=== PATIENT | male | born 1955 | race Caucasian/White ===

== ENCOUNTER 2022-02-18 05:50 | Inpatient (IN) | payer OTHER, SELFPAY ==
[2022-02-18] VITALS (27 sets, daily range): BP systolic 73–121; BP diastolic 51–80; PULSE 57–105; RESP 12–25; TEMP 36.1–36.6; O2SAT 89–100; BMI 24.5; BMI 22.1
--- NOTE | 2022-02-18 05:57 | RAD_ITS ---
EXAM: XR CHEST, 1 VIEW CLINICAL INDICATION: chest pain TECHNIQUE: Frontal view of the chest. This report was created using [employer] report generation technology. COMPARISON: 10/06/2014. FINDINGS: LUNGS AND PLEURAL SPACES: Unremarkable. No consolidation or edema. No pneumothorax. No effusion. HEART: Unremarkable. Cardiac silhouette not enlarged. MEDIASTINUM: Central airways and mediastinal contour are unremarkable. BONES/JOINTS: Unremarkable. SOFT TISSUES: Unremarkable. RAD/Chest 1 View (Portable) IMPRESSION: No radiographic evidence of acute cardiopulmonary disease. Electronically Signed: Hadley Tejada MD at 6:17 EDT ,
--- NOTE | 2022-02-18 05:57 | EKG12_ITS ---
Test Reason : CP Blood Pressure : / mmHG Vent. Rate : 060 BPM Atrial Rate : 060 BPM P-R Int : 166 ms QRS Dur : 096 ms QT Int : 422 ms P-R-T Axes : 080 081 058 degrees QTc Int : 422 ms Normal sinus rhythm ST elevation consider anterior injury or acute infarct ACUTE HI / STEMI Abnormal ECG Confirmed by CATINA MUNOZ, CLAUS ([id number]), slot editor ISMA RUBALCAVA ([id number]) on 02/19/2022 9:22:05 AM Referred By: Marleni Elizalde Confirmed By:ARY ELIZALDE MD
--- NOTE | 2022-02-18 06:03 | ED.VIS.CHEST ---
HPI History of Present Illness Chief Complaint: Chest Pain Informant: patient and EMS Onset/Context/Timing Onset: Today and Hours (1) Activity at onset: sudden Timing: Continuous Quality: Positive for Pressure Location: Left Chest Worsened By: Nothing Relieved By: Nothing Associated Symptoms: Positive for Diaphoresis and Lightheadedness; Negative for Nausea, Vomiting, Dyspnea, Cough, Fever, Acid Reflux or Palpitations Narrative Narrative: Patient presents with chest pain that began this morning. Patient states it began approximately 1 hour prior to arrival. Patient describes it as a pressure. Patient states it is over the left side of his chest. Patient states it radiates into his back. Patient states this feels similar to prior chest pain with his heart attacks. Patient states he has had 3 heart attacks and has had stents placed. Patient admits to some lightheadedness. Patient denies any shortness of breath. Patient admits to some nausea. Patient admits to some diaphoresis when the pain began. CVD Risk Factors: Positive for Hypertension and Smoking; Negative for Diabetes, Hypercholesterolemia or Family History 1' </=55 PE Risk Factors: Negative for Recent Travel/Surgery, Prior DVT or PE, Cancer or OCP + Smoking + >/=35 [facility] AT [facility] Medical History (Updated 02/18/22 @ 06:[address] Ras Rubi, ) Coronary artery disease Myocardial infarction Stroke Home Medications Triamcinolone 0.1% Cream 03/21/15 [History Last Taken 03/21/15] aspirin 325 mg tablet,delayed release 325 mg PO DAILY@0800 03/21/15 [History Last Taken 03/21/15 325] atorvastatin 80 mg tablet 80 03/21/15 [History Last Taken 03/21/15 80] lisinopril 5 mg tablet 5 03/21/15 [History Last Taken 03/21/15 5] metoprolol tartrate 25 mg tablet 25 03/21/15 [History Last Taken 03/21/15] nitroglycerin 0.4 mg sublingual tablet 03/21/15 [History Last Taken Unknown] Allergy/AdvReac Type Severity Reaction Status Date / Time Penicillins Allergy Hives Verified 02/18/22 06:06 Surgical History (Updated 02/18/22 @ 06:[address] Ras Rubi, DO) Hx of heart artery stent Social History Smoking Status: Current every day smoker tobacco type: cigarettes ROS ROS ED Constitutional Constitutional ED: Denies chills or fever(s) Eyes Eyes: Denies blurry vision or change in vision ENT ENT ED: Denies rhinorrhea or sore throat Cardiovascular Cardiovascular: Reports chest pain; Denies palpitations Respiratory/Chest Respiratory/Chest: Denies cough or dyspnea Gastrointestinal Gastrointestinal: Denies abdominal pain, nausea or vomiting Genitourinary Genitourinary ED: Denies dysuria or hematuria Musculoskeletal Musculoskeletal: Denies back pain or neck pain Integumentary Denies abscess or rash Neurologic Neurologic: Denies headache(s) or weakness Allergic/Immunologic Allergic/Immunologic ED: Denies mouth swelling or urticaria EXAM Physical Exam Const Vital Signs: 02/18/22 05:51 Temperature 97 F L Temperature Source Temporal Pulse Rate 62 Respiratory Rate 18 Blood Pressure 81/55 L Blood Pressure Mean 63 Pulse Ox 98 Oxygen Delivery Method Nasal Cannula Oxygen Flow Rate (L/min) 2 Positive well nourished and well developed General Appearance ED: well developed HEENT Reports moist mucous membranes Neck supple and no JVD Resp normal respiratory effort Auscultation: rales right Cardio regular rate and regular rhythm Peripheral Pulses: pulses 2+ throughout GI normal to inspection, nondistended, normoactive bowel sounds, soft to palpation and non-tender Extremity normal to inspection General Extremety ED: Negative for edema, pulses abnormal or tenderness General Extremity: Negative for edema or pulses abnormal Neuro oriented x3, CN's II-XII intact bilaterally and no sensory deficits noted Sensorium / Orientation: awake and alert Motor Exam: strength 5/5 throughout Psych mental status grossly normal Heart Score History: Highly Suspicious ECG: Significant ST-Depression Age: >/= 65 years Risk Factors: >/= 3 Risk Factors or History of CAD Score: 8 MDM MDM MDM Narrative Medical decision making narrative: EMS EKG shows sinus rhythm with ST elevation in leads II, III, aVF, V3, and V4. EKG upon arrival here was obtained. On my interpretation, it shows a normal sinus rhythm with a rate of 60. [place] interval, QRS interval, and QTc intervals are within normal limits. There is ST elevation in leads V1, V2, V3, and V4. The ST elevation in leads II, III, and aVF has resolved. EMS administered aspirin, heparin, and Brilinta. EMS reports that the patient took 2 sublingual nitroglycerin tablets prior to their arrival. Because of this, his blood pressure dropped to 81 systolic. Patient was getting IV fluids. Portable 1 view chest x-ray was obtained. On my interpretation, lung lombardi are clear. There is normal cardiac silhouette. Bony thorax is normal. There is no acute process noted. Radiologist also interpreted the x-ray and agrees. Case was discussed with Dr. Elizalde. He will take the patient to the Treatment Coordinator. Patient understands and is agreeable with the plan. All questions were answered. Radiography Chest X-Ray - ED: 1 View, Read by ED Physician, Read by Radiologist and No Acute Disease EKG Initial EKG: Attestation: I personally reviewed and interpreted this EKG as follows: Interpretation: Sinus Rhythm (60) and S-T Elevation (Leads V1 through V4) Prior EKG tracings: available for review Prior: Changed Treatment and Re-Evaluation Narrative: Patient was still having pain. Patient was initially ordered morphine for pain however, this was not given due to the patient's allergy and his low blood pressure. Patient will be transferred to the Treatment Coordinator. Critical Care Time Critical Care Time: Yes Critical care time (excluding procedures): 30-74 minutes (30), Including time spent:, Discussing w/Patient &/or Family/Vehicle Monitor Technician, Discussing w/Consultants, Arranging Admission or Transfer and Performing Direct Patient Care at Bedside Discharge Plan Triage Chief Complaint: Chest Pain ED Provider: Ras Rubi Dx/Rx/DC Orders Clinical Impression: Acute ST elevation myocardial infarction (STEMI), Coronary artery disease, Hypotension Primary Care Provider: Hospital,[place] Disposition Disposition: Acute Care Hospital [facility]
[2022-02-18 06:13] LABS: Absolute Lymphocyte Count 6.83 X10^3/uL (0.83-4.51); Absolute Neutrophil Count 5.9 X10^3/uL (2.0-7.7); Basophil# 0.05 X10^3/uL; Basophil% 0.3 % (0-1); Eosinophil# 0.28 X10^3/uL; Eosinophils% 1.9 % (0-5); Hematocrit 39.5 % (40-54); Hemoglobin 13.7 g/dL (13.0-16.5); Lymphocyte # 6.83 X10^3/ul (0.83-4.51); Lymphocyte % 47.4 % (19-41); Mean Corp Hgb Conc 34.7 g/dL (32-36); Mean Corpuscular Hgb 32.3 pg (27.0-32.0); Mean Corpuscular Volume 93.2 fL (80-94); Mean Platelet Vol. 9.4 fl (6.2-12.0); Monocyte# 1.28 X10^3/uL; Monocyte% 8.9 % (0-10); NRBC Flagged by Analyzer 0 % (0-5); Neutrophil % 41.1 % (47-70); POSITIVE DIFFERENTIAL YES; Platelet Count 230 K/mm3 (150-450); RBC Distribution Width CV 12.6 % (11.6-14.6); RBC Distribution Width SD 43.3 fl (35.1-43.9); Red Blood Count 4.24 M/mm3 (4.6-6.2); White Blood Count 14.4 K/mm3 (4.4-11.0)
--- NOTE | 2022-02-18 06:15 | PCM.HP.STD ---
HPI - General General Date of Admission: 02/18/22 Date of Service: 02/18/22 Chief Complaint: CHEST PAIN HPI Narrative EDWARD URBAN, is a 66 M with a significant history of CAD status post stents who presents to the emergency department with chest pain. Patient reports left-sided persistent chest pain that radiates to his upper back. The pain worsened about 1 hour prior to presentation. For couple of days he has had chest pain. The pain worsened while he was using his computer. He denies any aggravating factors to the chest pain. The chest pain improved with medication given prior to arrival to the ED. Reportedly patient was given aspirin; Brilinta; fentanyl and heparin by paramedics.. Patient report that for a couple of days he has also had shortness of breath. He denies nausea or vomiting. However with his chest pain he was incontinent of stool. He reports diaphoresis. At the emergency department his chest pain was beginning to increase in intensity. [facility] Medical History Coronary artery disease Myocardial infarction Stroke Home Medications Triamcinolone 0.1% Cream 03/21/15 [History Last Taken 03/21/15] aspirin 325 mg tablet,delayed release 325 mg PO DAILY@0800 03/21/15 [History Last Taken 03/21/15 325] atorvastatin 80 mg tablet 80 03/21/15 [History Last Taken 03/21/15 80] lisinopril 5 mg tablet 5 03/21/15 [History Last Taken 03/21/15 5] metoprolol tartrate 25 mg tablet 25 03/21/15 [History Last Taken 03/21/15] nitroglycerin 0.4 mg sublingual tablet 03/21/15 [History Last Taken Unknown] Allergy/AdvReac Type Severity Reaction Status Date / Time Penicillins Allergy Hives Verified 02/18/22 06:06 Family History Other Breast cancer Heart disease Surgical History Hx of heart artery stent Social History Smoking Status: Current every day smoker tobacco type: cigarettes ROS ROS Narrative Pertinent positives and pertinent negatives as noted in HPI. All other systems were reviewed and are negative Vital Signs Vital Signs Vital Signs: 02/18/22 05:51 02/18/22 05:51 02/18/22 06:04 Temperature 97 F L Temperature Source Temporal Pulse Rate 62 Respiratory Rate 18 18 Respiratory Effort Respiratory Pattern Blood Pressure 81/55 L 88/60 L Blood Pressure Mean 63 Pulse Ox 98 Oxygen Delivery Method Nasal Cannula Nasal Cannula Oxygen Flow Rate (L/min) 2 6 02/18/22 06:06 02/18/22 06:05 Temperature Temperature Source Pulse Rate 72 Respiratory Rate Respiratory Effort Normal Respiratory Pattern Normal Blood Pressure 73/51 L Blood Pressure Mean 58 Pulse Ox 100 Oxygen Delivery Method Nasal Cannula Oxygen Flow Rate (L/min) 6 Weight Weight: 71 kg Body Mass Index (BMI) 24.5 Physical Exam Narrative Physical exam: General: Patient in excruciating distress secondary to chest pain. Head: Normocephalic, atraumatic, no tenderness Eyes: Vision is grossly intact. EOMI ENT, no trauma, moist mucous membranes, no rhinorrhea Neck: Nontender, full range of motion. CVS: Regular rate and rhythm. S1-S2 present. No murmur, gallop or rub. Respiratory : clear to auscultation bilaterally, chest wall nontender, no wheezing Abdomen: Soft, nontender, nondistended, normal bowel sounds, no masses : Deferred Back: Nontender, no CVA tenderness. Extremities: Nontender full range of motion, no trauma Skin: Normal color, no trauma, abrasions Neuro: Alert, oriented, cranial nerves II through XII grossly intact. Psychiatry: Normal mood. Normal affect. Not depressed. Not anxious. Results Lab / Micro Data Result Diagrams: 02/18/22 05:55 02/18/22 05:55 Assessment & Plan Assessment/Plan (1) Acute ST elevation myocardial infarction (STEMI): (2) Hypotension: (3) Coronary artery disease: PLAN: Plan STEMI alert was called before patient arrived to the ED. EKG obtained by paramedics showed inferior lateral ST elevation with reciprocal ST depression. On arrival to the emergency department EKG showed ST elevation in V1 to V4 with reciprocal depressions. Taken to the Heater Operator Helper for PCI. Cardiology interventionalist consult. Checks x-ray was visualized and independent interpreted. No acute cardiopulmonary process was noted. I agree with radiologist interpretation. Given aspirin, Brilinta, fentanyl and heparin by paramedics. CBC and BMP ordered Admit to intensive care unit Hypotension Normal bolus ordered and given at the ED. Trend BP DVT prophylaxis: SCDs Charges/Coding Visit Charges Inpatient E&M: 95786 Init Hosp L3
[2022-02-18 06:31] LABS: Anion Gap 8 (5-15); BUN 15 mg/dL (7-18); BUN/Creat Ratio 16.1 RATIO (10-20); Calcium,Total 8.3 mg/dL (8.5-10.1); Chloride 106 mmol/L (98-107); Creatinine, Serum 0.93 mg/dL (0.70-1.30); EST Glomerular Filtration Rate 86 mL/min (>60); Est Glom Filt Rate - Afr Amer 104 mL/min (>60); Estimated Creatinine Clearance 73.05 ml/min; Glucose 160 mg/dL (74-106); International Normalized Ratio 1.2; Potassium 3.5 mmol/L (3.5-5.1); Prothrombin Time (Protime)PT. 15.1 SECONDS (11.7-14.9); Sodium Level 140 mmol/L (136-145); Troponin-I HS 54 pg/mL (3.0-78.0)
[2022-02-18 06:34] LABS: Partial Thromboplast Time 156.8 Seconds (24.1-36.2)
[2022-02-18 06:40] LABS: Differential Indicated SCAN CRITERIA MET
--- NOTE | 2022-02-18 07:58 | PCM.CONS.C ---
Assessment & Plan Assessment/Plan (1) Acute ST elevation myocardial infarction (STEMI): PLAN: Patient was treated with drug-eluting stents to the LAD and circumflex. He has a chronically occluded RCA that has collaterals from the circumflex. We will keep him on aspirin, Brilinta and statin. We will resume his beta-lui and MARE inhibitor as when he is off the Levophed if his blood pressure can tolerate. (2) Cardiogenic shock: PLAN: He received 1 dose of Lasix due to elevated EDP at the end of the procedure. He is on Levophed at this time. We will try to wean him off the Levophed as his blood pressure improves post revascularization. HPI Consult Data Date of Consult: 02/18/22 HPI Narrative Reason for Consultation: STEMI HPI Narrative: EDWARD URBAN, is a 66 M who presents with chest pain. Patient has history of coronary artery disease status post PCI in the past. He said his last stents were about 8 to 10 years ago. He follows with the [facility] in [place]. An EKG done on the way to the hospital was suggestive of STEMI. Patient was emergently brought to the [facility] and underwent coronary angiography which revealed 100% occlusion of the LAD that was treated with thrombectomy and drug-eluting stent placement. He also had a 99% stenosis in the proximal circumflex that was treated with drug-eluting stent placement. There were collaterals from the circumflex to the RCA. Patient did mention that he was told that one of his arteries was completely blocked and his body had made some collaterals. The RCA was occluded and appeared to be chronic. Patient has severe LV dysfunction as well. His blood pressure was in the 70s systolic for most of the procedure. He was started on Levophed. At the end of the procedure patient is stable, chest pain-free and has a blood pressure of 80s systolic on Levophed. Review of systems: All systems reviewed. All else is negative except in HPI [facility] Medical History Coronary artery disease Myocardial infarction Stroke Home Medications Triamcinolone 0.1% Cream 03/21/15 [History Last Taken 03/21/15] aspirin 325 mg tablet,delayed release 325 mg PO DAILY@0800 03/21/15 [History Last Taken 03/21/15 325] atorvastatin 80 mg tablet 80 03/21/15 [History Last Taken 03/21/15 80] lisinopril 5 mg tablet 5 03/21/15 [History Last Taken 03/21/15 5] metoprolol tartrate 25 mg tablet 25 03/21/15 [History Last Taken 03/21/15] nitroglycerin 0.4 mg sublingual tablet 03/21/15 [History Last Taken Unknown] Allergy/AdvReac Type Severity Reaction Status Date / Time Penicillins Allergy Hives Verified 02/18/22 06:06 Family History Other Breast cancer Heart disease Surgical History Hx of heart artery stent Social History Smoking Status: Current every day smoker tobacco type: cigarettes Physical Exam Const alert and oriented x3 HEENT normocephalic Eyes no scleral icterus Resp normal respiratory effort Cardio regular rate and regular rhythm Psych mental status grossly normal Risk Stratification Risk Stratification Applicable: No Charges/Coding Visit Charges Inpatient E&M: 51047 Init Hosp L2 Objective Data Vital Signs: Vital Signs Temp Pulse Resp BP Pulse Ox O2 Del Method O2 Flow Rate 97 F L 72 18 73/51 L 100 Nasal Cannula 6 02/18/22 06:18 02/18/22 06:18 02/18/22 06:18 02/18/22 06:18 02/18/22 06:18 02/18/22 06:18 02/18/22 06:18 Oxygen Flow Rate (L/min) 6 Oxygen Delivery Method Nasal Cannula Weight: 156 lb 8.451 oz Body Mass Index (BMI) 24.5 Lab / Micro Data Result Diagrams: 02/18/22 05:55 02/18/22 05:55 Labs: Laboratory Results - last 24 hr 02/18/22 05:55: WBC 14.4 H, RBC 4.24 L, Hgb 13.7, Hct 39.5 L, MCV 93.2, MCH 32.3 H, MCHC 34.7, RDW Std Deviation 43.3, RDW Coeff of Wisam 12.6, Plt Count 230, MPV 9.4, Immature Gran % (Auto) 0.400, Neut % (Auto) 41.1 L, Lymph % (Auto) 47.4 H, Bennett % (Auto) 8.9, Eos % (Auto) 1.9, Baso % (Auto) 0.3, Absolute Neuts (auto) 5.9, Absolute Lymphs (auto) 6.83 H, Nucleated RBC % 0 02/18/22 05:55: PT 15.1 H, INR 1.2, APTT 156.8 H* 02/18/22 05:55: Sodium 140, Potassium 3.5, Chloride 106, Carbon Dioxide 26.0, Anion Gap 8, BUN 15, Creatinine 0.93, Estim Creat Clear Calc 73.05, Est GFR (MDRD) Af Amer 104, Est GFR (MDRD) Non-Af 86, BUN/Creatinine Ratio 16.1, Glucose 160 H, Calcium 8.3 L, Troponin I High Sens 54 Cardiology Labs/Tests 02/18/22 05:55: WBC 14.4 H, RBC 4.24 L, Hgb 13.7, Hct 39.5 L, MCV 93.2, MCH 32.3 H, MCHC 34.7, Plt Count 230, MPV 9.4, Immature Gran % (Auto) 0.400, Neut % (Auto) 41.1 L, Lymph % (Auto) 47.4 H, Bennett % (Auto) 8.9, Eos % (Auto) 1.9, Baso % (Auto) 0.3, Absolute Neuts (auto) 5.9, Nucleated RBC % 0 02/18/22 05:55: PT 15.1 H, INR 1.2, APTT 156.8 H* 02/18/22 05:55: Sodium 140, Potassium 3.5, Chloride 106, Carbon Dioxide 26.0, Anion Gap 8, BUN 15, Creatinine 0.93, Est GFR (MDRD) Af Amer 104, Est GFR (MDRD) Non-Af 86, BUN/Creatinine Ratio 16.1, Glucose 160 H, Calcium 8.3 L Rhythm: EKG: ECHO: Stress Test: Cardiac Cath: PCI: CT Surgery: Holter monitor: EPS: PPM: CXR: Chest CT Scan: Radiography Diagnostic Testing: Radiology Impression Chest X-Ray 02/18/22 05:57 IMPRESSION: No radiographic evidence of acute cardiopulmonary disease. Electronically Signed: Hadley Tejada MD at 6:17 EDT ,
[2022-02-18] MEDS: 0.9% Normal Saline 1,000 ML 30 ML IV (08:27)
[2022-02-18] MEDS: TICAGRELOR 90 MG TABLET PO ×2 (09:19→20:10)
--- NOTE | 2022-02-18 10:00 | EKG12_ITS ---
Test Reason : ROUTINE Blood Pressure : / mmHG Vent. Rate : 089 BPM Atrial Rate : 089 BPM P-R Int : 158 ms QRS Dur : 098 ms QT Int : 360 ms P-R-T Axes : 086 091 058 degrees QTc Int : 438 ms Normal sinus rhythm Normal ECG When compared with ECG of 18-FEB-2022 08:15, MANUAL COMPARISON REQUIRED, DATA IS UNCONFIRMED Confirmed by SYDNEE MUNOZ, BUZZ ([id number]), editorial specialist ISMA RUBALCAVA ([id number]) on 02/20/2022 11:22:10 AM Referred By: Marleni Elizalde Confirmed By:BUZZ RANDHAWA MD
[2022-02-18] MEDS: Atorvastatin Calcium 80 MG Tablet PO (20:10)
[2022-02-19] VITALS (23 sets, daily range): BP systolic 93–130; BP diastolic 54–83; PULSE 78–130; RESP 14–20; TEMP 36.6–37.6; O2SAT 89–99
[2022-02-19 04:09] LABS: Hematocrit 37.9 % (40-54); Mean Corp Hgb Conc 34.3 g/dL (32-36); Mean Corpuscular Volume 93.3 fL (80-94); Mean Platelet Vol. 9.5 fl (6.2-12.0); Platelet Count 162 K/mm3 (150-450); RBC Distribution Width CV 12.8 % (11.6-14.6); RBC Distribution Width SD 44.1 fl (35.1-43.9); Red Blood Count 4.06 M/mm3 (4.6-6.2)
[2022-02-19 04:27] LABS: ALB/GLOB Ratio 0.7 RATIO (0.9-2.4); AST(SGOT) 339 U/L (15-37); Alanine Aminotransfer ALT/SGPT 80 U/L (16-61); Albumin, Serum 2.6 g/dL (3.2-5.0); Alkaline Phosphatase 99 U/L (45-117); Anion Gap 7 (5-15); BUN 9 mg/dL (7-18); BUN/Creat Ratio 11.7 RATIO (10-20); Calcium,Total 7.8 mg/dL (8.5-10.1); Chloride 107 mmol/L (98-107); Creatinine, Serum 0.77 mg/dL (0.70-1.30); EST Glomerular Filtration Rate 107 mL/min (>60); Est Glom Filt Rate - Afr Amer 130 mL/min (>60); Estimated Creatinine Clearance 67.83 ml/min; Globulin 3.7 g/dL (2.2-4.2); Glucose 123 mg/dL (74-106); Protein, Total 6.3 g/dL (6.4-8.2); Sodium Level 139 mmol/L (136-145)
--- NOTE | 2022-02-19 08:02 | PN.HOSP_ITS ---
Subjective Subjective Doing well, no issues overnight. Off of Levophed. Denies any chest pain or shortness of breath Objective Data Objective Data Vital Signs: Vital Signs Temp Pulse Resp BP Pulse Ox O2 Del Method O2 Flow Rate 99.6 F H 83 19 H 100/59 L 92 Nasal Cannula 2 02/19/22 00:00 02/19/22 07:00 02/19/22 07:00 02/19/22 07:00 02/19/22 07:00 02/19/22 07:00 02/19/22 07:00 Oxygen Flow Rate (L/min) 2 Oxygen Delivery Method Nasal Cannula Weight: 145 lb 8.081 oz Body Mass Index (BMI) 22.1 Intake & Output: Intake and Output for Last 24 Hours 02/18/22 02/19/22 02/20/22 03:59 03:59 03:59 Intake Total 1979 / 1979 Output Total 2049 / 2599 550 / 550 Balance -70 / -620 -550 / -550 Lab / Micro Data Result Diagrams: 02/19/22 04:00 02/19/22 04:00 Labs: Laboratory Results - last 24 hr 02/19/22 04:00: WBC 14.0 H, RBC 4.06 L, Hgb 13.0, Hct 37.9 L, MCV 93.3, MCH 32.0, MCHC 34.3, RDW Std Deviation 44.1 H, RDW Coeff of Wisam 12.8, Plt Count 162, MPV 9.5 02/19/22 04:00: Sodium 139, Potassium 4.0, Chloride 107, Carbon Dioxide 25.0, Anion Gap 7, BUN 9, Creatinine 0.77, Estim Creat Clear Calc 67.83, Est GFR (MDRD) Af Amer 130, Est GFR (MDRD) Non-Af 107, BUN/Creatinine Ratio 11.7, Glucos e 123 H, Calcium 7.8 L, Total Bilirubin 0.70, AST 339 H, ALT 80 H, Alkaline Phosphatase 99, Total Protein 6.3 L, Albumin 2.6 L, Globulin 3.7, Albumin/Globulin Ratio 0.7 L Physical Exam Narrative General: Alert, Oriented x3, Cooperative, No apparent distress HEENT: Atraumatic, PERRLA, EOMI, Normocephalic Oral: Moist Mucosa Neck: Supple, No JVD Lungs: Clear to auscultation, Normal air movement, No rhonchi, No wheeze, No rales Cardiovascular: Regular rate, Regular Rhythm, Normal S1, Normal S2, No murmurs Abdomen: Soft, Non Tender, Non-Distended, No Hepato-splenomegaly Extremities: No edema, Capillary Refill Less than 3 Seconds Skin: No rashes, No breakdown Musculoskeletal: No Tenderness to Palpation of Joints or Extremities Neurological: Cranial nerves II-XII grossly intact, Motor Exam 5/5 strength throughout, Sensory exam intact to light touch and pain Psych/Mental Status: Normal Affect, Appropriate Assessment & Plan Assessment/Plan (1) Acute ST elevation myocardial infarction (STEMI): (2) Hypotension: (3) Coronary artery disease: PLAN: Plan 1. STEMI status post JUANCARLOS/HTN/HLD/CAD/tobacco abuse ? Continue with aspirin and Brilinta ? Blood pressures are borderline so is not cannot tolerate any blood pressure medications at this time ? Continue with Lipitor ? Discussed smoking cessation ? Appreciate cardiology's assistance DVT: SCDs Charges/Coding Visit Charges Inpatient E&M: 03570 Subs Hosp L2
--- NOTE | 2022-02-19 08:35 | CRPHASE1 ---
Patient Communication Former Patient:: Phase I PHII Cardiac Rehab Discussed with Patient:: Yes Guide to Cardiac Rehab Given to Patient:: Yes Cardiac Rehab Facility Choice List Given to Patient:: Yes Choice Program [facility] CR PHII:: Communication Given to CR Choice Program Other:: Communication Given to CR Belt Puncher:: Marleni Elizalde Refer Phase II Cardiac Rehab:: Yes Sessions:: 36 sessions - 3 days/wk, 12 weeks Cardiac Rehabilitation Info Cardiac Rehabilitation Program Information: Cardiac Rehabilitation is important for patients like you who are recovering from a heart problem. Cardiac rehabilitation programs are recognized as integral to the continued care of the patient with coronary heart disease. The cardiac rehabilitation program is designed to optimize a patient's physical, psychological, and social functioning. Health patient centered care specialist work in cardiac rehabilitation programs and assist you with getting the treatments you need to get stronger and healthier - like exercise, healthy eating habits, and medications. Cardiac rehabilitation has been show to help people with heart problems live longer and have better life enjoyment than people who do not go to cardiac rehabilitation. Please contact the Cardiac Rehabilitation Program at [facility] at in two weeks if you have not heard from them.
--- NOTE | 2022-02-19 08:36 | CRPH1.INSTRU ---
General Education CAD and cardiac anatomy and function:: Patient communicates acknowledgment Explanation of diagnoses and procedures:: Patient communicates acknowledgment Sign/Symptoms of [place]:: Patient communicates acknowledgment Antiplatelet therapy: Patient communicates acknowledgment Smoking Patient Nicotine/Smoking Risk Factors Are:: Cigarettes Recommendations Include:: Smoking cessation strategies/Smoking packet, Participation in a smoking cessation program, Previous smoker; encourage continued cessation Nicotine/Smoking Response Code:: Patient communicates acknowledgment Dyslipidemia Patient Dyslipidemia Risk Factors Are:: Total Cholesterol, Triglycerides, HDL, LDL Recommendations Include:: Lipid profile provided, Reviewed NCEP/ATP guidelines, Therapeutic Lifestyle Change dietary guidelines Dyslipidemia Response Code:: Patient communicates acknowledgment Overweight/Obesity Patient Overweight/Obesity Risk Factors Are:: BMI Normal [18-25 & < 65 years old] Hypertension Recommendations Include:: Maintain BP <130/85, DASH dietary guidelines, Decrease/maintain normal body weight, Moderation of ETOH Hypertension:: Patient communicates acknowledgment Diabetes Patient Diabetes Risk Factors Are:: No documented hx of diabetes Sedentary Patient Sedentary Risk Factors Are:: Lack of regular exercise Recommendations Include:: Aerobic exercise 5-7 times/week for 20-30 minutes continuously, Benefits of regular exercise, Discussed home walking program, Monitored Outpatient Cardiac Rehab Sedentary Response Code:: Patient communicates acknowledgment Stress Recommendations Include:: Identification of stressors, and assessment of coping skills, Stress management techniques Stress Response Code:: Patient communicates acknowledgment
--- NOTE | 2022-02-19 10:00 | EKG12_ITS ---
Test Reason : AM EKG Blood Pressure : / mmHG Vent. Rate : 081 BPM Atrial Rate : 081 BPM P-R Int : 156 ms QRS Dur : 092 ms QT Int : 346 ms P-R-T Axes : 074 078 048 degrees QTc Int : 401 ms Normal sinus rhythm Anterior infarct , age undetermined Abnormal ECG When compared with ECG of 19-FEB-2022 07:41, MANUAL COMPARISON REQUIRED, DATA IS UNCONFIRMED Confirmed by SYDNEE MUNOZ, BUZZ ([id number]), map editor ISMA RUBALCAVA ([id number]) on 02/21/2022 9:38:26 AM Referred By: Marelni Elizalde Confirmed By:BUZZ RANDHAWA MD
--- NOTE | 2022-02-19 11:00 | CASEMGMT ---
RN ERIC Face to Face with patient for initial transition planning/care coordination assessment. RN CM introduced self and role at [facility]. Patient lying in bed, alert and oriented. Patient willing to participate in assessment and is able to answer all questions appropriately. Care providers, pharmacy, and demographics verified. Patient wishes to discharge home, denies need for home health at this time. Patient states he has no further needs or concerns at this time. CM to follow for discharge planning needs that may arise. PCP: [place] Special[place]: [place] Preferred Pharmacy: [facility] or via mail through [place] through [place] Living Will/HPOA: None LNOK: Ying Valenzuela Living Arrangements: Patient lives with GF in a 2 story home with bed and bath on first floor, 5 steps and railing to enter the home. Patient states he is independent at home. Transportation: self, GF DME/HHC: Patient denies DME in the home. No previous HHC or SNF. Will monitor for anticoagulation savings card at discharge. Disposition Plan: Patient to discharge home with family support and follow-up plans in place. Catie DUNCAN, RN, CM
[2022-02-19] MEDS: Aspirin E.C. 81 MG Tablet PO (12:52)
[2022-02-19] MEDS: TICAGRELOR 90 MG TABLET PO ×2 (13:32→22:42)
--- NOTE | 2022-02-19 14:05 | CL.I_ITS ---
Patient Name: EDWARD URBAN Study Date: 02/18/2022 Performing: Leeroy Elizalde MD Ht: 67 inches 170.18 cm : 1955 Wt: 156.7 lbs 71 kg Age: 66 Gender: male BSA: 1.82 PROCEDURE(S) PERFORMED DC01-(47916)LHC/COR/LV IC16-(87323/[id number])AMI, JUANCRALOS OR PTCA, ARTERY/GRAFT, SINGLE VESSEL IC12-(15581/C9600)JUANCARLOS W/WO PTCA, SINGLE CORONARY ARTERY CLINICAL PROFILE AND CO-MORBIDITIES Indications: ACS <= 24 hrs Heart Failure: None Stress/Imaging Stress/Image Study Performed: No CAD Presentations: STEMI. Symptom onset Date/Time: 02/18/22 Time Not Available CONCLUSIONS Severe multivessel CAD as described. EF is 35%. No significant . Successful PCI of pLAD with JUANCARLOS. Successful PCI of pLCx [facility] JUANCARLOS RECOMMENDATIONS DESCRIPTION OF PROCEDURE The patient arrived to the procedure lab. The risks and benefits of the procedure as well as a full description of our services here and lack of surgical backup were fully explained to the patient and/or their significant other prior to the catheterization. The Timeout was completed, verifying the correct patient and procedure. The patient's procedural site was prepped and draped in the usual fashion. Local anesthetic was given subcutaneously to right radial region with Lidocaine 2%. Using a modified Seldinger technique, arterial access was obtained via the right radial artery, a 6Fr sheath was inserted.. Left Coronary Artery selective angiography was performed in multiple views using a 5 Fr. JL3.5 catheter. Left Ventriculography was performed in QUIROGA projection using a 5 Fr. JR4. Right Coronary Artery selective angiography was then performed in multiple views using a 5 Fr. JR 4 catheter XB 3.0 Guide catheter was inserted and engaged into the LCA Priority One inserted Pass # 1 Priority One Removed Angiogram performed post Priority one Angiogram performed post Priority one Emerge 2.50x20 Balloon catheter was inserted. PTCA balloon inflated at 6 atms for 8 secs. PTCA balloon inflated at 6 atms for 7 secs. PTCA balloon inflated at 6 atms for 7 secs. PTCA balloon inflated at 6 atms for 5 secs. PTCA balloon inflated at 6 atms for 10 secs. PTCA balloon inflated at 6 atms for 5 secs. Angiogram performed post balloon dilatation. Orsiro 2.5x40 Drug Eluting stent was inserted. Angiogram performed post stent deployment. Orsiro 2.75x26 Drug Eluting stent was inserted. Angiogram performed post stent deployment. NC Emerge 2.75x20 Balloon catheter was inserted. BMW Guide wire was repositioned to the Circumflex PTCA balloon inflated at 12 atms for 6 secs. PTCA balloon inflated at 12 atms for 25 secs. PTCA balloon inflated at 12 atms for 5 secs. Angiogram performed post balloon dilatation. Orsiro 2.75x40 Drug Eluting stent was inserted. Angiogram performed post stent deployment. NC Emerge 3.00x20 Balloon catheter was inserted. Runthrough Guide wire was inserted as a jan wire NC Emerge 3.00x 20- on Runthrough wire Balloon catheter was inserted. NC Emerge 3.00x20- on BMW wire Balloon catheter was inserted. The arterial sheath was pulled and a TR Band was applied for hemostasis w/12ml air CORONARY ANGIOGRAPHY DOMINANCE: Right Dominant LEFT HEART ASSESSMENT Left Ventricular Ejection Fraction: by LV Gram 35 % The base of the LV is alexis well. Rest of the LV is moderate to severely hypokinetic LEFT MAIN: Mild luminal irregularities LEFT ANTERIOR DESCENDING ARTERY: PROX LAD: 100 % Stenosis DIAGONAL 1: Proximal - 80 % Stenosis. Small vessel CIRCUMFLEX ARTERY: PROX CIRC: 95 % Stenosis RIGHT CORONARY ARTERY: PROX RCA: 100 % Stenosis. Collaterals noted from LCx to RCA VALVE FINDINGS: No Aortic Valve Stenosis INTERVENTION INFORMATION LESION SITE: LAD (Proximal) Lesion Complexity: High/C, chronic total occlusion: No, lesion at bifurcation: No, thrombus present: Yes, lesion length: 60 mm, culprit lesion: Yes, Previously treated lesion: Yes, Timeframe of previous treatment: >2 years, Previously treated with a stent: Yes Stent Type: with stent type unknown, In-stent restenosis: Yes Pre Stenosis: 100 % Pre intervention AGNES flow: 0 PROCEDURE: Thrombectomy, Drug Eluting Stent with pre and post dilatation Post Stenosis: 0 % Post intervention AGNES flow: 3 Lesion Devices: Cardinal 6 Fr XB3.0 100cm Guide Catheter Simmons .014 BMW [employer] Straight 190cm Tero Priority One Aspiration Catheter Toby Sci EMERGE MR 2.50x20 BALLOON Biotronik Orsiro [place] MR JUANCARLOS 2.75x26 Toby Sci NC EMERGE MR 2.75x20 BALLOON Biotronik Orsiro [place] MR JUANCARLOS 2.5x40 LESION SITE: Circumflex (Proximal) Lesion Complexity: High/C, chronic total occlusion: No, lesion at bifurcation: No, thrombus present: No, lesion length: 35 mm, culprit lesion: Yes, Previously treated lesion: No Pre Stenosis: 95 % Pre intervention AGNES flow: 3 PROCEDURE: Drug Eluting Stent with pre dilatation. Post Stenosis: 0 % Post intervention AGNES flow: 3 Lesion Devices: Cardinal 6 Fr XB3.0 100cm Guide Catheter Simmons .014 BMW Hannaford Straight 190cm Toby Sci NC EMERGE MR 2.75x20 BALLOON Biotronik Orsiro [place] MR JUANCARLOS 2.75x40 Toby Sci NC EMERGE MR 3.00x20 BALLOON Terumo .014 Runthrough Extra Floppy 180cm straight COMPLICATIONS No Complications PROCEDURE MEDICATIONS Fentanyl 25 mcg IV Oxygen: 2 L/min via nasal cannula Oxygen: 4 L/min via nasal cannula Heparin given IA 02/18/2022 06:34:54 Heparin 1000 unit(s) IV 02/18/2022 07:22:58 Lasix 20 mg IV 02/18/2022 07:43:43 IV Bolus: .9 NaCl 2L total 02/18/2022 06:28:04 SUMMARY OF HEMODYNAMIC DATA Time AIR REST ECG 06:20:14 ECG 06:22:40 AO 59/40 (48) SA 06:36:39 LV 73/10, 28 06:42:07 LV 79/18, 30 06:42:14 LVp 73/44, 45 06:42:16 AOp 74/46 (59) 06:42:22 AO 72/46 (57) 06:48:45 AO 62/41 (50) 07:04:59 AO 58/38 (48) 07:11:08 ECG 07:40:47 Signed By Leeroy Elizalde MD On 02/19/2022 14:04:14 Leeroy Elizalde MD
--- NOTE | 2022-02-19 14:28 | PN.CARD_ITS ---
Subjective Subjective doing well. denies any cardiac complaints Objective Data Vital Signs: Vital Signs Temp Pulse Resp BP Pulse Ox O2 Del Method O2 Flow Rate 97.9 F 130 H 20 H 130/83 H 94 Room Air 2 02/19/22 12:00 02/19/22 13:00 02/19/22 13:00 02/19/22 13:00 02/19/22 13:00 02/19/22 13:00 02/19/22 07:00 Oxygen Flow Rate (L/min) 2 Oxygen Delivery Method Room Air Weight: 145 lb 8.081 oz Body Mass Index (BMI) 22.1 Intake & Output: Intake and Output for Last 24 Hours 02/17/22 02/18/22 02/19/22 23:59 23:59 23:59 Intake Total 1979 Output Total 1674 925 / 925 Balance 305 / -70 -925 / -925 Lab / Micro Data Result Diagrams: 02/19/22 04:00 02/19/22 04:00 Labs: Laboratory Results - last 24 hr 02/19/22 04:00: WBC 14.0 H, RBC 4.06 L, Hgb 13.0, Hct 37.9 L, MCV 93.3, MCH 32.0, MCHC 34.3, RDW Std Deviation 44.1 H, RDW Coeff of Wisam 12.8, Plt Count 162, MPV 9.5 02/19/22 04:00: Sodium 139, Potassium 4.0, Chloride 107, Carbon Dioxide 25.0, Anion Gap 7, BUN 9, Creatinine 0.77, Estim Creat Clear Calc 67.83, Est GFR (MDRD) Af Amer 130, Est GFR (MDRD) Non-Af 107, BUN/Creatinine Ratio 11.7, Glucos e 123 H, Calcium 7.8 L, Total Bilirubin 0.70, AST 339 H, ALT 80 H, Alkaline Phosphatase 99, Total Protein 6.3 L, Albumin 2.6 L, Globulin 3.7, Albumin/Globulin Ratio 0.7 L Cardiology Labs/Tests 02/19/22 04:00: WBC 14.0 H, RBC 4.06 L, Hgb 13.0, Hct 37.9 L, MCV 93.3, MCH 32.0, MCHC 34.3, Plt Count 162, MPV 9.5 02/19/22 04:00: Sodium 139, Potassium 4.0, Chloride 107, Carbon Dioxide 25.0, Anion Gap 7, BUN 9, Creatinine 0.77, Est GFR (MDRD) Af Amer 130, Est GFR (MDRD) Non-Af 107, BUN/Creatinine Ratio 11.7, Glucose 123 H, Calcium 7.8 L, Total Bilirubin 0.70 Rhythm: EKG: ECHO: Stress Test: Cardiac Cath: PCI: CT Surgery: Holter monitor: EPS: PPM: CXR: Chest CT Scan: Physical Exam Const alert and oriented x3 HEENT normocephalic Resp normal respiratory effort Cardio regular rate Skin no rashes or lesions noted Psych mental status grossly normal Assessment & Plan Assessment/Plan (1) Acute ST elevation myocardial infarction (STEMI): PLAN: Patient was treated with drug-eluting stents to the LAD and circumflex. He has a chronically occluded RCA that has collaterals from the circumflex. We will keep him on aspirin, Brilinta and statin. Will restart BB. Due to BP being on the low side, will add MARE-I tomorrow if he is able to tolerate the BB. (2) Cardiogenic shock: PLAN: Improved. Off levo. Adding BB today, Charges/Coding Visit Charges Inpatient E&M: 96655 Subs Hosp L2
[2022-02-19] MEDS: Metoprolol(XL)Succ 25 MG Tablet PO (15:43)
[2022-02-19] MEDS: Atorvastatin Calcium 80 MG Tablet PO (22:42)
[2022-02-19] MEDS: 0.9% Saline Lock 10 ML Syringe IV (22:48)
[2022-02-20] VITALS (9 sets, daily range): BP systolic 87–102; BP diastolic 57–65; PULSE 75–93; RESP 16–18; TEMP 36.9–37.3; O2SAT 92–96
[2022-02-20 06:10] LABS: Absolute Lymphocyte Count 2.04 X10^3/uL (0.83-4.51); Absolute Neutrophil Count 8.4 X10^3/uL (2.0-7.7); Basophil# 0.03 X10^3/uL; Basophil% 0.3 % (0-1); Eosinophil# 0.07 X10^3/uL; Eosinophils% 0.6 % (0-5); Hematocrit 40.1 % (40-54); Hemoglobin 13.9 g/dL (13.0-16.5); Lymphocyte # 2.04 X10^3/ul (0.83-4.51); Lymphocyte % 17.3 % (19-41); Mean Corp Hgb Conc 34.7 g/dL (32-36); Mean Corpuscular Volume 92.4 fL (80-94); Mean Platelet Vol. 9.5 fl (6.2-12.0); Monocyte# 1.26 X10^3/uL; Monocyte% 10.7 % (0-10); NRBC Flagged by Analyzer 0 % (0-5); Neutrophil # 8.38 X10^3/uL (2.7-7.7); Neutrophil % 70.8 % (47-70); Platelet Count 174 K/mm3 (150-450); RBC Distribution Width CV 12.5 % (11.6-14.6); RBC Distribution Width SD 42.8 fl (35.1-43.9); Red Blood Count 4.34 M/mm3 (4.6-6.2); White Blood Count 11.8 K/mm3 (4.4-11.0)
[2022-02-20 06:51] LABS: ALB/GLOB Ratio 0.6 RATIO (0.9-2.4); AST(SGOT) 167 U/L (15-37); Alanine Aminotransfer ALT/SGPT 57 U/L (16-61); Albumin, Serum 2.6 g/dL (3.2-5.0); Alkaline Phosphatase 99 U/L (45-117); Anion Gap 6 (5-15); BUN 11 mg/dL (7-18); BUN/Creat Ratio 14.6 RATIO (10-20); Calcium,Total 8.4 mg/dL (8.5-10.1); Chloride 109 mmol/L (98-107); Creatinine, Serum 0.75 mg/dL (0.70-1.30); EST Glomerular Filtration Rate 110 mL/min (>60); Est Glom Filt Rate - Afr Amer 133 mL/min (>60); Estimated Creatinine Clearance 64.96 ml/min; Globulin 4.1 g/dL (2.2-4.2); Glucose 109 mg/dL (74-106); Potassium 3.8 mmol/L (3.5-5.1); Protein, Total 6.7 g/dL (6.4-8.2); Sodium Level 139 mmol/L (136-145)
--- NOTE | 2022-02-20 10:00 | EKG12_ITS ---
Test Reason : POST STEMI Blood Pressure : / mmHG Vent. Rate : 086 BPM Atrial Rate : 086 BPM P-R Int : 162 ms QRS Dur : 098 ms QT Int : 380 ms P-R-T Axes : 073 083 008 degrees QTc Int : 454 ms Normal sinus rhythm ST & T wave abnormality, consider inferior ischemia Abnormal ECG When compared with ECG of 18-FEB-2022 05:52, MANUAL COMPARISON REQUIRED, DATA IS UNCONFIRMED Confirmed by SYDNEE MUNOZ, BUZZ ([id number]), scientific editor ISMA RUBALCAVA ([id number]) on 02/20/2022 11:22:47 AM Referred By: Marleni Elizalde Confirmed By:BUZZ RANDHAWA MD
--- NOTE | 2022-02-20 10:18 | PCM.DC ---
Discharge Instructions Diet Discharge Diet: Low fat / Low cholesterol Activity Discharge Activity: Return to Normal Activity Dressing / Incision Call your doctor if you observe: Fever of 101 or Higher, Shortness of breath, Dizziness, Fainting spells, Swelling in the ankles, Chest pain and Increased palpitations (irregular heartbeat) Follow Up Care Test Results: Test results from this visit will be discussed in further detail at your follow-up appointment, if applicable. Discharge Plan Admission Admit Date/Time: 02/18/22 06:08 Attending Provider: Angel Walker Primary Care Provider: [facility],[place] Consulting Providers: Shad Monzon ; Marleni Elizalde Discharge Orders/Prescriptions Prescriptions: New atorvastatin 80 mg Tablet 80 mg PO QHS Qty: 30 0RF aspirin 81 mg Tablet,Delayed Release (Dr/Ec) 81 mg PO DAILY@0800 Qty: 30 0RF metoprolol succinate 25 mg Tablet Extended Release 24 Hr 25 mg PO DAILY Qty: 30 0RF Brilinta 90 mg Tablet 90 mg PO BID Qty: 60 0RF Discontinued atorvastatin 80 MG tablet 80 mg aspirin 325 MG tablet 325 mg PO DAILY@0800 nitroglycerin 0.4 MG tablet 1 mg lisinopril 5 MG tablet 5 mg metoprolol tartrate 25 MG tablet 25 mg Aspir-81 81 mg Referrals / Follow Up: [facility],[place] [Primary Care Provider] - Within 1 Week Marleni Elizalde MD [Med Staff - Active Staff] - Within 1 Month Disposition Disposition (needs filled in before D/C Order can be placed): Home, Self Care
[2022-02-20] MEDS: Metoprolol(XL)Succ 25 MG Tablet PO (10:21)
[2022-02-20] MEDS: TICAGRELOR 90 MG TABLET PO (10:21)
[2022-02-20] MEDS: Aspirin E.C. 81 MG Tablet PO (10:21)
--- NOTE | 2022-02-20 10:39 | CASEMGMT ---
Addendum entered by Catie Montelongo 02/20/22 11:09: MOSES REYES received a message to call Brittanie at [facility] in regards to pt. Call to Brittanie at ext [phone] and she is updated on pt discharge today, voices understanding. Nikita LOPES CM Addendum entered by Catie Montleongo 02/20/22 10:57: Call from Nigel in pharmacy and she states pt's cost for atorvastatin and metoprolol is $26.84. This RN CM to room to update pt and he states he already has atorvastatin and metoprolol at home. This RN CM clarified doses and atorvastatin is the same dose and metoprolol is same dose but is the extended release tab now. Call back to pharmacy and updated that pt will just need the Brilinta, metoprolol and baby asa, voices understanding and pt aware of new cost, $13.59. Pt voices no further questions/concerns/needs. Nikita LOPES CM Addendum entered by Catie Montelongo 02/20/22 10:43: Pt only has [place], so no rx insurance. Call back to pharmacy to update and they will apply coupon card for Brilinta and then will call this RN CM back with cost for metoprolol and atorvastatin. Nikita LOPES CM Original Note: Pt to be sent home on Brilinta and med e-scribed to [facility] pharmacy. Call to Sheela in pharmacy and she will notify this RN ERIC of pt co-pay and then apply one month free trial card. CM to follow. Nikita LOPES CM
--- NOTE | 2022-02-20 14:00 | PHA.DC.MC ---
Pharmacy Service has performed discharge medication reconciliation and counseling for this patient. 1. METOPROLOL SUCCINATE 25MG PO DAILY 2. TICAGRELOR 90MG PO BID The patient's discharge medication list was reviewed for discrepancies and discrepancies were resolved. Home Medications aspirin 81 mg tablet,delayed release 81 mg PO DAILY@0800 #30 tabs 02/20/22 atorvastatin 80 mg tablet 80 mg PO QHS #30 tabs 02/20/22 metoprolol succinate 25 mg tablet,extended release 24 hr 25 mg PO DAILY #30 tabs 02/20/22 ticagrelor 90 mg tablet (Brilinta) 90 mg PO BID #60 tabs 02/20/22 The patient was counseled on the following discharge medications and changes in medications for homegoing were reviewed. The Reason for Use, instructions for use, and potential side effects were reviewed for all new medications. The patient's questions regarding all of their medications were answered. The patient was able to verbally demonstrate an understanding of their discharge medications. Patient counseled by pharmacy teacherGregoria.
--- NOTE | 2022-02-20 14:26 | DS.PCM_ITS ---
Providers Date of Admission: 02/18/22 Primary Care Physician: [facility] Consultations 02/18/22 08:03 Consult: Cardiology Routine Consulting Provider: Marleni Elizalde Reason for Consult: STEMI EMERGENT Consult: No MD Notified: Yes Date Notified: 02/18/22 Time Notified: 06:13 Method of Notification: ED Physician Initiated Method of Consult:: In-Person Reason For Visit: stemi Diagnosis Discharge Diagnosis (1) Acute ST elevation myocardial infarction (STEMI): Status: Acute Code(s): I21.3 - ST elevation (STEMI) myocardial infarction of unspecified site (2) Cardiogenic shock: Status: Acute Code(s): R57.0 - Cardiogenic shock Plan 1. STEMI status post UJANCARLOS/HTN/HLD/CAD/tobacco abuse ? Continue with aspirin and Brilinta ? Blood pressures are borderline so is not cannot tolerate any blood pressure medications at this time ? Continue with Lipitor ? Discussed smoking cessation ? Appreciate cardiology's assistance DVT: SCDs Medications at Discharge Home Medications aspirin 81 mg tablet,delayed release 81 mg PO DAILY@0800 #30 tabs 02/20/22 atorvastatin 80 mg tablet 80 mg PO QHS #30 tabs 02/20/22 metoprolol succinate 25 mg tablet,extended release 24 hr 25 mg PO DAILY #30 tabs 02/20/22 ticagrelor 90 mg tablet (Brilinta) 90 mg PO BID #60 tabs 02/20/22 Hospital Course Operations None Procedures Cardiac catheterization Summary of Care Provided Minutes Spent on Discharge: 45 Hospital Course: Per HPI: EDWARD URBAN, is a 66 M with a significant history of CAD status post stents who presents to the emergency department with chest pain.? Patient reports left-sided persistent chest pain that radiates to his upper back.? The pain worsened about 1 hour prior to presentation.? For couple of days he has had chest pain.? The pain worsened while he was using his computer.? He denies any aggravating factors to the chest pain.? The chest pain improved with medication given prior to arrival to the ED.? Reportedly patient was given aspirin; Brilinta;? fentanyl and heparin by paramedics.. Patient report that for a couple of days he has also had shortness of breath.? He denies nausea or vomiting.? However with his chest pain he was incontinent of stool.? He reports diaphoresis. At the emergency department his chest pain was beginning to increase in intensity. Hospital Course: 1.? STEMI status post JUANCARLOS with resolved cardiogenic shock/HTN/HLD/CAD/tobacco abuse ? Continue with aspirin and Brilinta ? Blood pressures are borderline so is not cannot tolerate any blood pressure medications at this time ? Continue with Lipitor ? Discussed smoking cessation ? Appreciate cardiology's assistance ? Doing well today, I discussed with him the possibility for discharge and expressed standing orders benefits going home and would like to go home today. His blood pressures were little bit low so I did discuss with cardiology the issue with his metoprolol and lisinopril especially since he did have c ardiogenic shock and required temporary Levophed during admission. They felt that we could discontinue endoprobe but that he should be on the metoprolol. I discussed with him that if he does take the metoprolol and he becomes symptomatic with dizziness or lightheadedness that he is to stop it immediately. He expressed understanding I do recommend that he follow-up with his PCP at the [place] but also with her inspector welded parts here at this hospital. He will also need to be on aspirin and Brilinta twice daily for a year and I did discuss with him the importance of this as well. Physical Exam Narrative General: Alert, Oriented x3, Cooperative, No apparent distress HEENT: Atraumatic, PERRLA, EOMI, Normocephalic Oral: Moist Mucosa Neck: Supple, No JVD Lungs: Clear to auscultation, Normal air movement, No rhonchi, No wheeze, No rales Cardiovascular: Regular rate, Regular Rhythm, Normal S1, Normal S2, No murmurs Abdomen: Soft, Non Tender, Non-Distended, No Hepato-splenomegaly Extremities: No edema, Capillary Refill Less than 3 Seconds Skin: No rashes, No breakdown Musculoskeletal: No Tenderness to Palpation of Joints or Extremities Neurological: Cranial nerves II-XII grossly intact, Motor Exam 5/5 strength throughout, Sensory exam intact to light touch and pain Psych/Mental Status: Normal Affect, Appropriate Weight / BMI Weight Weight: 139 lb 5.314 oz Body Mass Index (BMI) 22.1 ABG / Lab / Microbiology Data Result Diagrams: 02/20/22 05:50 02/20/22 05:50 Laboratory: Laboratory Results - last 24 hr 02/20/22 05:50: WBC 11.8 H, RBC 4.34 L, Hgb 13.9, Hct 40.1, MCV 92.4, MCH 32.0, MCHC 34.7, RDW Std Deviation 42.8, RDW Coeff of Wisam 12.5, Plt Count 174, MPV 9.5, Immature Gran % (Auto) 0.300, Neut % (Auto) 70.8 H, Lymph % (Auto) 17.3 L, [place] % (Auto) 10.7 H, Eos % (Auto) 0.6, Baso % (Auto) 0.3, Absolute Neuts (auto) 8.4 H, Absolute Lymphs (auto) 2.04, Nucleated RBC % 0 02/20/22 05:50: Sodium 139, Potassium 3.8, Chloride 109 H, Carbon Dioxide 24.0, Anion Gap 6, BUN 11, Creatinine 0.75, Estim Creat Clear Calc 64.96, Est GFR (MDRD) Af Amer 133, Est GFR (MDRD) Non-Af 110, BUN/Creatinine Ratio 14.6, Glucose 109 H, Calcium 8.4 L, Total Bilirubin 1.30 H, AST 167 H, ALT 57, Alkaline Phosphatase 99, Total Protein 6.7, Albumin 2.6 L, Globulin 4.1, Albumin/Globulin Ratio 0.6 L D/C Instructions Discharge Diet: Low fat / Low cholesterol Call your doctor if you observe: Fever of 101 or Higher, Shortness of breath, Dizziness, Fainting spells, Swelling in the ankles, Chest pain and Increased palpitations (irregular heartbeat) Meaningful Use Info Meaningful Use Diagnoses (Choose all that apply): None applicable Discharge Plan Admission Admit Date/Time: 02/18/22 06:08 Attending Provider: Angel Walker Primary Care Provider: [facility],[place] Consulting Providers: Shad Monzon ; Marleni Elizalde Discharge Orders/Prescriptions Prescriptions: New atorvastatin 80 mg Tablet 80 mg PO QHS Qty: 30 0RF aspirin 81 mg Tablet,Delayed Release (Dr/Ec) 81 mg PO DAILY@0800 Qty: 30 0RF metoprolol succinate 25 mg Tablet Extended Release 24 Hr 25 mg PO DAILY Qty: 30 0RF Brilinta 90 mg Tablet 90 mg PO BID Qty: 60 0RF Discontinued atorvastatin 80 MG tablet 80 mg aspirin 325 MG tablet 325 mg PO DAILY@0800 nitroglycerin 0.4 MG tablet 1 mg lisinopril 5 MG tablet 5 mg metoprolol tartrate 25 MG tablet 25 mg Aspir-81 81 mg Referrals / Follow Up: Marleni Elizalde MD [Med Staff - Active Staff] - 03/21/22 1:30 [facility] [Primary Care Provider] - Within 1 Week Disposition Disposition (needs filled in before D/C Order can be placed): Home, Self Care Charges/Coding Visit Charges Inpatient E&M: 29466 Disch Hosp
== END 2022-02-20 11:27 | disposition home or self-care (01) | DRG 246 ==
LOC: ED 05:57 → ACINP 06:15 → ICU 06:26 → PCU 02-19 17:15
PROVIDERS: Admitting Provider Hospitalist; Emergency Provider Emergency Medicine; Referring Provider Specialist; Visit Provider Family Medicine
DX: I21.3 ST elevation (STEMI) myocardial infarction of unspecified site (principal); R57.0 Cardiogenic shock; F17.210 Nicotine dependence, cigarettes, uncomplicated; I25.10 Atherosclerotic heart disease of native coronary artery without angina pectoris; I10 Essential (primary) hypertension; E78.5 Hyperlipidemia, unspecified; Z79.82 Long term (current) use of aspirin; Z79.02 Long term (current) use of antithrombotics/antiplatelets; Z95.5 Presence of coronary angioplasty implant and graft; Z86.73 Personal history of transient ischemic attack (TIA), and cerebral infarction without residual deficits
CPT/HCPCS: 36415; 71045; 80048; 80053; 84484; 85025; 85027; 85610; 85730; 92928; 92941; 93005; 93458; 99152; 99153; 99285; 99406; C1757; C1874; J7030; J7040; J7050; Q9967; A4216; C1725; C1769; C1887; C1894; C9600; C9606; J1327; J1940

== ENCOUNTER → 2022-03-20 | Outpatient (CLI) | payer OTHER, SELFPAY ==
--- NOTE | 2022-03-20 13:47 | CR.ITP_ITS ---
Diagnosis - General Information Admitting Diagnosis: ST-Elevated Myocardial Infarction, PCI/JUANCARLOS to LAD and CX Personal Learning Style:: Audio/Visual Barriers to Learning: No Barriers Stage of change r/t lifestyle modifications:: Action Gave educational material for:: Treating Heart Disease, Emotions & Heart Disease, Stress Management & Relaxation, Sleep Disorders & Heart Disease, How The Heart Works, What it means to have Heart Disease, How Coronary Artery Disease is Diagnosed, Heart Procedures, What Heart Medications Do, Risk Factors & Modifications, Living an Active Life, Nutrition - Education/Goals Individual Counseling: Initial Assessment: Nicotine/Smoking, Abnormal Cholesterol Levels, High Blood Pressure Cardiac Rehabilitation Goals: 1. Maintain the individual as the primary focus of care. 2. To improve the patient's quality of life. 3. Identification of cardiac risk factors and provide cardiac risk factor management. 4. Enhance the psychosocial status of the patient. 5. Reconditioning enough to allow the patient to resume customary activities. 6. Control symptoms of cardiac disease Personal Goals: Initial Assessment: Quit smoking (participate in smoking cessation, Improve energy level, Improve muscle strength and endurance, Control risk factors (learn risk factor modification) Scale for measuring improvement of personal goals: Enter appropriate number in Comments. 2 = Unchanged. 3 = Slightly Better. 4 = Moderate Improvement. 5 = Met my Goal - Diagnosis & Disease Process Outcomes/Goals: Pt IDs own risk factors & lifestyle modifications by Session 10, Verbalizes symptoms of angina & response by session 3., Pt independently manages Plan/Interventions: Assist Pt to ID & engage in lifestyle modification to reduce CVD risk, Instruct on individual risk factors, Review symptoms of angina & emergency actions, Review secondary diagnosis & identify educational needs. - Safety Referral to Physical Therapy: No Referral to [facility] Case Management: No Fall Risk Assessed:: Yes Exercise - Initial Assessment - Visit Date of Eval: 03/20/22 Session #:: 0 - Pre-cardiac Rehab Evaluation Mets: Pre-: >7 METS for 30 minutes by discharge - Physician Prescribed Exercise Modalities: Treadmill, Rower, Airdyne Frequency: 3x/week for 12 weeks [36 sessions] Intensity: 60-80% of age predicted maximum heart rate reserve Current METSs:: 4.0 Target Heart Rate:: 100-130 Resting Blood Pressure: 112/70 EKG Type: NSR w/ST & T wave abnormality - Outcomes & Goals Goals:: Verbalizes understanding of THR, RPE & goal METS by session 6, Documents in home exercise log/reports 30 min aerobic 5 day/wk by DC, Demonstrates accurate pulse taking by DC - Intervention & Plan Exercise Program Goals: Instruct on personal THR & RPE, Instruct on MET level & personal MET goal, Show patient to take own pulse /validate performance until accurate, Instruct on home exercise - Physical Activity Home Exercise Physical Activity - Home Exercise: Safe Exercise, Warm-up, Self-monitoring, Cool-Down, Home Exercise > 30 min Daily, Sitting Time <3 hours/daily - Outcomes & Goals Outcomes/Goals: Demonstrates correct Warm-up/exercise Cool-Down (S3) if = 2.5 METs, Verbalizes symptoms of exercise intolerance by Session 3 (S3), Demonstrate safe equipment use (S3) & follows exercise prescrition (6) - Intervention & Plan Plan/Intervention: Instruct warm-up & cool-down if exercising at > 2 METs, Instruct on symptoms of exercise intolerance & actions to take, Instruct & monitor on saf, Assess intial functional capacity & safety risk Nutrition - Initial Assessment - Program Goals Nutrition Program Goals: LDL <100 optimal. 100 - 129 Near optimal. 130 - 159 Borderline High. 160 - 189 High. Total Cholesterol <200 desirable. 200 - 239 Borderline High. >/= 240 High. HDL < 40 Low >/=60 High. Triglycerides <150 desirable. <199 optimal. VlDL 5 - 40. HgbA1C <7%. BMI <25 Patient has diagnosis of Hyperlipidemia (ICD E78)?: Yes - Visit Date of Assessment:: 03/20/22 Session #:: 0 - Pre-cardiac Rehab Evaluation - Cholesterol/Lipids (Other Core Measures) Triglycerides (mg/dL): 113 Total Cholesterol (mg/dL): 161 LDL Cholesterol (mg/dL): 120 HDL Cholesterol (mg/dL): 41 Determine presence & major risk factors that modify LDL goal: Cigarette smoking, Hypertension or hypertensive medication, Family history of premature CHD in Male < 55 years: female <65 yearsFa, Age men > 45 years; women >/= 55 years Outcomes/Goals: Pt IDs own risk factors & lifestyle modifications by Session 10, Verbalizes symptoms of angina & response by session 3., Pt independently manages Intervention/Plan: Instruct on personal lipid levels & lipid goals/NCEP guidelines, Instruct on cholesterol Referral to dietitian:: Yes - Medical Nutrition Therapy - Diabetes (Other Core Measures) Diabetes Type: Not Applicable - Weight Mgt (Other Care) Not Applicable: Yes Height: 5 ft 8 in Weight:: 138 lb 11.2 oz BMI: 21.0 BMI (Report if calculated above): 0 Diagnosis Overweight/Obesity BMI> 30% ICD-10 E66: No Diagnosis High BMI/Morbid Obesity BMI> 35% ICD-10 Z68: No Outcomes/Goals: Pt sets, maintains & shows weight loss goal & trend during rehab Intervention/Plan: Instruct on ideal BMI & set weight loss goal w/patient - Healthy Eating Habits Will attend diet classes:: Yes Outcomes/Goals:: Consume diet rich in vegs,fruits,whole grain/high fiber,fish,lean meat, Limit sat/trans fats,cholesterol & added salts & sugars Intervention/Plan:: Assess current eating habits - Education Gave educational materials for:: Healthy eating Nutrition - 30-Day Assessment Nutrition - 60-Day Assessment Nutrition - 90-Day Assessment Nutrition - Final Assessment Core - Initial Assessment - Visit Date of Eval: 03/20/22 Session #:: 0 - Pre-cardiac Rehab evaluation - Medication Compliance Preventative Medication(s):: Aspirin, Statin/lipid, Beta lui H/O mental health issues: depression, anxiety, or addiction?: No Doesn?t believe in the benefits of treatment?: No Believes medications are unnecessary or harmful?: No Has a concern about medication side effects?: No Expresses concern over the cost of medications?: No Outcomes/Goals: Verbalizes medications,desired effect & common side effects @ DC, Pt self-reports following medication regimen, Keeps card in wallet w/medications listed by DC Interventions/plans: Instruct on medication effects & side effects, Review medication list w/patient every two weeks, Instruct importance of taking meds as ordered & assist problem solving - Tobacco Use Tobacco Use: Cigarettes Outcomes/Goals: Smoking cessation achieved or maintained by discharge, Identify aids/strategies for achieving smoking cessation by session 6 Interventions/plan: Instruct on effects of smoking & provide smoking cessation resource, Assist pt to set quit date & provide encouragement, Assist pt to develop strategies to achieve/maintain quit date, Assist pt w/nicotine replacement & medication for cessation success - Hypertension Hypertension Diagnosis:: Hypertension ICD-10 I10 Resting Blood Pressure:: 112/70 [place] [employer] Hypertension Guidelines: [place] [employer] Hypertension Guidelines. Normal BP Less than 120/80. Elevated BP 120/80. Hypertension Stage 1: BP 130-139/80-89. Hypertesnion Stage 2: BP 140 or higher/90 or higher. Hypertension Crisis: BP higher than 180/120 Outcomes/Goals: Able to verbalize/achieve optimal blood pressure <130/80, Incorporates diet changes & exercise for blood pressure control by DC Interventions/plan: Instruct on optimal blood pressure, hypertension & medications, Instruct on effects of sodium, alcohol, stress, exercise &hypertension - Tobacco Cessation Referral Smoking Cessation Referral:: Yes - Referral to Smoking Cessation Counselor Individual Education/Counseling:: No Education Schedule Given:: Yes Core - 30-Day Assessment Core - 60-Day Assessment Core - 90 Day Assessment Core - Final Assessment Psychosocial - Initial Assess - VIsit Date of Eval: 03/20/22 Session #:: 0 - Pre-cardiac Rehab Evaluation Not Applicable: Yes History of previous Mental disease:: No - Psychosocial Test Tool Used:: Double R Group QOL Cardiac, PHQ-9 Questionnaire phq-9 Severity: Severity. 1-4 Minimal Depression. 5-9 Mild Depression. 10-14 Moderate Depression. 15-19 Moderately Sever Depression. 20-27 Severe Depression. Rule: - Referral to Behavioral Health PS - Interventions: Yes Attend Stress Management Classes, No Referral to Behavioral Health if PHQ-9 score >9:, No Referral to [facility], No Referral to Physician if PHQ-9 if score is 5-9: - Outcomes/Goals: See list Psychosocial Outcomes/Goals:: ID's personal stressors & 2 strategies to manage stress by discharge - Intervention/Plan: See List Interventions/Plan:: Assess stressors,coping strategies & signs of derpression on admission, Instruct/assist pt to develop coping & personal stress Mgt strategies, Instruct patient to recognize signs & symptoms of depression, Instruct patient to recog Psychosocial - 30-Day Assess Psychosocial - 60-Day Assess Psychosocial - 90-Day Assess Psychosocial - Final Assessmen Patient Health Questionnaire Initial Assessment 1. Little interest or pleasure in doing things: Not at all 2. Feeling down, depressed, or hopeless: Not at all 3. Trouble falling or staying asleep, or sleeping too much: Not at all 4. Feeling tired or having little energy: Nearly every day 5. Poor appetite or overeating: Not at all 6. Feeling bad about yourself -- or that you are a failure or have let yourself or your family down: Not at all 7. Trouble concentrating on things, such as reading the newspaper or watching television: Not at all 8. Moving or speaking so slowly that other people could have noticed. Or the opposite - being so fidgety or restless that you have been moving around a lot more than usual: Not at all 9. Thoughts that you would be better off , or of hurting yourself in some way: Not at all Total Score: 3 ABNER-Q SV Test - Statements CAD is a disease of the arteries in the heart: False Examples of risk factors for heart disease: True Angina is chest pain or discomfort: True The benefits of resistance training include: True Eating more meat and dairy products: False Anti-platelet medications such as aspirin are important: True The only effective way to manage stress: False An exercise warm-up slowly increases heart rate: True Prepared, processed foods usually have high sodium: True Depression is common after a heart attack: True The statin medications lower cholesterol: True To control blood pressure, lower the amount of sodium: True If someone gets chest discomfort during walking: False Transfats are partially hydrogenated vegetable oils: False Sleep apnea that is not treated increases the risk: False To control cholesterol, one should become a vegetarian: False Someone knows if he/she is exercising at the right level: True Diabetes cannot be prevented with exercise & health eating: False Stress is a large risk for heart attack: True A diet that can help lower blood pressure is rich in: True - Total Score Total Correct Responses: 19 Self-Efficacy Initial Assessment We would like to know how confident you are in doing certain activities. Please select your confidence level for:: Select your confidence level for the following using the scale 1-10 where 1 is not at all confident and 10 is totally confident. Your score is the average of all 6 responses. Fatigue: How confident are you that you can keep the fatigue caused by your disease from interfering with the things you want to do? Select Number: 9 Physical Discomfort or Pain: How confident are you that you can keep the physical discomfort or pain of your disease from interfering with the things you want to do? Select Number: 9 Emotional Distress: How confident are you that you can keep the emotional distress caused by your disease from interfering with the things you want to do? Select Number: 10 Other Symptoms or Health Problems: How confident are you that you can keep other symptoms or health problems from interfering with the things you want to do? Select Number: 9 Different Tasks and Activities: How confident are you that you can do the different tasks and activities needed to manage your health condition so as to reduce your need to see a doctor? Select Number: 8 Medication: How confident are you that you can do things other than just taking medication to reduce how much your illness affects your everyday life? Select Number: 9 Total Score:: 9 Nutrition Survey - Nutrition Survey Initial Have you lost >10 lbs over the past 2 months without trying?: No Are you following a special diet at home for diabetes, low fat, or low salt?: No Are you interested in meeting with a dietitian for help understanding your diet?: No Do you eat less than 3 meals a day?: Yes Do you eat fatty meats (fernandez, sausage, ribs, etc), fried foods, desserts, large amounts of salad dressings, margarine, butter, or cheese most days?: Yes Do you have food allergies? [Enter types in comment field]: No Do you eat in restaurants more than 3 times a week?: No Do you used canned, boxed, frozen meals, or soups, seasoning packets?: Yes
--- NOTE | 2022-03-20 13:47 | PCM.CR.HP2 ---
CR - History & Physical - General Arrival date:: 03/20/22 Arrival time:: 01:37 Date of Referral:: 03/07/22 Date of CR Evaluation:: 03/20/22 Referring Physician: [facility] Primary Diagnosis: PCI/JUANCARLOS to LAD and Cx - History of Present Cardiac Event Onset Date: Enter Onset Date of cardiac illnesses in Comment field below Acute Myocardial Infarction within 12 months:: Yes - STEMI 02/18/2022; RI in 1999. His LVEF 55% PTCA or coronary stenting:: Yes - PCI/JUANCARLOS 02/18/2022; PCI 01/2015, 2011, 2002, 1999 Vessel: LAD and Cx Type of Symptoms:: Pain in September and December and was referred to [facility] for stress test. Patient never scheduled the stress test I don't know why then in February 18, 2022 came in to Emergency room with chest pain and diagnosed STEMI, Interventions with present event:: Heart catheterization and stents. 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 - Sleep Disorder Evaluation Hx of Sleep Apnea: No Do you snore loudly (louder than talking or can be heard through closed doors)?: No Do you often feel tired/ fatigued/ sleepy during daytime?: Yes - since the last RI and may be related to the Brillinta Has anyone observed you stop breathing during sleep?: No History of Hypertension (for STOP score): Yes STOP Results: Positive - Medications Home Medications: Ambulatory Orders Medication Instructions Recorded aspirin 81 mg tablet,delayed 81 mg PO DAILY@0800 #30 tabs 02/20/22 release atorvastatin 80 mg tablet 80 mg PO QHS #30 tabs 02/20/22 metoprolol succinate 25 mg 25 mg PO DAILY #30 tabs 02/20/22 tablet,extended release 24 hr ticagrelor 90 mg tablet (Brilinta) 90 mg PO BID #60 tabs 02/20/22 multivit with minerals-iron 18 1 tab PO DAILY 03/20/22 mg-folic ac 400 mcg-vit K 25 mcg tablet (Adults Multivitamin) nitroglycerin 0.4 mg sublingual 0.4 mg sublingual Q5M PRN Chest 03/20/22 tablet Pain - Allergies Allergies/Adverse Reactions: Allergies Penicillins Allergy (Verified 02/18/22 06:06) Hives Advanced Directives - Advanced Directives Power of Pig Conveyor Operator: No Living Will: No Advance Directives Information Provided: Yes Advance Directives on File: No DNR Order?:: No - MOLST See MOLST form: No Past Medical History - Covid-19 Screening Fever: No Unexplained muscle aches: No Current respiratory symptoms: No Upper respiratory infections symptoms: No Gastro-intestinal symptoms: No Sae-Uixt-Cokumh symptoms: No Has tested positive for COVID-19 in last 30 days: No Date of testin03/20/22 - Patient has not been vaccinated Had contact w/person w/symptoms or Covid-19 (+) last 14 days: No Has High Risk Exposures ID'd by Health dept/Inf Control team: No 65 years or older:: Yes Lives in Assisted Living facility:: No Has a chronic lung disease or moderate to severe asthma:: Yes Has a serious heart condition:: Yes Immunocompromised:: No Severely obese (Body Mass Index of 40 or higher):: No Diabetic:: No Has chronic kidney disease undergoing dialysis:: No Has liver disease:: No - Past Medical Illness Medical History: Past Medical History (Last Updated 02/20/22 @ 19:45 by Cheryl Kay) Acute ST elevation myocardial infarction (STEMI) Onset Date: 02/18/22 I21.3 Atherosclerosis of coronary artery of [place] heart without angina pectoris I25.10 Cardiogenic shock R57.0 Coronary artery disease I25.10 Hypotension I95.9 Stroke I63.9 - Past Surgical History Surgical History: Past Surgical History (Last Updated 02/19/22 @ 16:58 by Toña Santoro) History of coronary artery stent placement Z95.5 PCI-JUANCARLOS to pLAD w/ 2.75 x 26 mm Orsiro [place] MR JUANCARLOS and 2.5 x 40 mm Orsiro [place] MR JUANCARLOS. PCI-JUANCARLOS to pLCx w/ 2.75 x 40 mm Orsiro [place] MR JUANCARLOS 02/18/22 - Family History Summary Family History: Family History (Last Reviewed 02/18/22 @ 06:[address] Shad Monzon MD) Other Breast cancer Heart disease Social History - Smoking History Smoking Status: Heavy Smoker (>10/day) Years Smokin Packs Smoked per Day: 1 - plans to start Chantix Rx. Hx Tobacco Use: Yes Hx Smoking Exposure: Yes - Alcohol Use Alcohol Usage: Yes - rare occasions - Substance Abuse Hx Substance Use: Yes - youngers years 30-40 years ago. - Occupation Occupation (List type of work in comments):: Retired - Hobbies, Recreation, Social Activities Hobbies: Woodworking, Walking, Other - , casino, vacations-travel Recreational Activities: I am able to engage in most, but not all activities Social Environment - Status Marital Status: - Current Living Arrangements Living Environment:: Spouse - significant other for 30 years - Children How many children do you have?: 4 Do any of your children live nearby?: Yes - Safety Do you feel safe in your surroundings?: Yes - Assistance Do you need any assistance at home?: no Review of Systems - Review of Systems Hints: Right click = Denies (Slash). Left click = Reports ([place]) Review of Present Symptoms: Reports: Shortness of Breath at Rest, Shortness of Breath with Exertion - Sometimes it is even less than when I am sitting and resting, Appetite - Normal, Sleep - Normal. Denies: Angina, Dizziness/Lightheadedness, Fatigue, Heart Arrhythmia/Irregularities, Appetite - Special Diet, Sexual Changes - Pain Is Patient Pain Free?: Yes Pain Location: none Pain Level: 0/10 Risk Factor Assessment - Chief Complaint Chief Complaint: pt is a 67 yr old male patient who presents to CR following recent STEMI and PCI intervention. Patient previously has done CR about 10-13years ago following his previous RI's and stents. - Vital Signs Temperature: 98.2 F Respiratory Rate: 14 Pulse Ox: 98 Blood Pressure: 112/70 - Pulse Pulse Rate: 90 Pulse Rhythm: Regular - Hypertension Blood Pressure Sitting - Left Arm: 112/70 - Blood Cholesterol/Lipids Total Cholesterol (mg/dL) Goal = less than 200 mg/dL: 161 HDL Cholesterol (mg/dL) Goal = less than 40 mg/dL: 41 LDL Cholesterol (mg/dL) Goal = less than 70 mg/dL: 120 Triglycerides (mg/dL) Goal = less than 150 mg/dL: 113 - Diabetes Nutrition Referral for Diabetes: No - Obesity Height: 5 ft 8 in Weight:: 138 lb 11.2 oz Weight in Pounds: 138.7 lbs Weight Source: Standing Scale Body Mass Index (BMI): 21.0 Nutritional Referral for Obesity: No - Physical Inactivity Physical Inactivity: Recreational activity - walking - Risk Stratification Risk Guidelines: Lowest Risk: Risk Factor for Dyslipidemia, Risk Factor for Diabetes, Risk Factor for Obesity, Risk Factor for Hypertension - 112/70, Risk Factor for Sedentary Lifestyle, Risk Factor for Depression, Highest Risk: Risk Factor for Smoking - Family History Family History: Family History (Last Reviewed 02/18/22 @ 06:[address] Shad Monzon MD) Other Breast cancer Heart disease Motivation - Motivation to Participate On a scale of 1 to 10, how prepared are you to commit to attending program?: 9 What do you see as barriers to successfully being able to complete the program?: gas prices and traveling expenses, limit to 2 days per week. What do you see as the benefits of succesfully completing the program? In other words, what do you hope to get out of participating in the program?: increased endurance, strength, lessen fatigue and laziness Are there issues you are dealing with that will interfere with completing the program?: no Do you have a spouse or signficant other, family or friends who will help support you to complete the program?: yes
[2022-03-20 14:31] VITALS: BP 112/70; PULSE 90; RESP 14; TEMP 36.8; O2SAT 98; BMI 21.0
[2022-03-20 15:04] VITALS: BP 112/70; BMI 21.0
== END | disposition home or self-care (01) ==
LOC: CR 13:41
DX: Z95.5 Presence of coronary angioplasty implant and graft (principal)

== ENCOUNTER 2022-04-15 14:30 | Outpatient (RCR) | payer OTHER, SELFPAY ==
[2022-03-20 14:00] VITALS: BMI 21.0
== END 2022-04-15 23:59 ==
LOC: CR 14:30
DX: Z98.61 Coronary angioplasty status (principal)
CPT/HCPCS: 93798

== ENCOUNTER 2022-05-13 14:30 | Outpatient (RCR) | payer OTHER, SELFPAY ==
[2022-03-20 15:04] VITALS: BMI 21.0
--- NOTE | 2022-04-19 09:54 | CR.ITP_ITS ---
Diagnosis Exercise - 30-day Assessment - Visit Date of Eval: 04/19/22 Session #:: 8 - Physician Prescribed Exercise Modalities: Treadmill, Airdyne, NuStep, SciFit Frequency: 3x/week for 12 weeks [36 sessions] Intensity: 60-80% of age predicted maximum heart rate reserve Current METSs:: 5 Target Heart Rate:: 100-130 Current RPE:: 12-13 Maximum Excercise HR:: 120 Resting Blood Pressure: 110/52 Maximum Exercise Blood Pressure: 160/64 EKG Type: NSR to ST with rare PAC, PVC - Outcomes & Goals Goals:: Verbalizes understanding of THR, RPE & goal METS by session 6, Documents in home exercise log/reports 30 min aerobic 5 day/wk by DC, Demonstrates accurate pulse taking by DC, Other additional outcome/goals: see below - Intervention & Plan Exercise Program Goals: Instruct on personal THR & RPE, Instruct on MET level & personal MET goal, Show patient to take own pulse /validate performance until accurate, Instruct on home exercise, Other additional plan/int - 30-day Reassessments 30 day Reassessments:: Progressing - stressed importance of warm up - Physical Activity Home Exercise Physical Activity - Home Exercise: Safe Exercise, Warm-up, Self-monitoring, Cool-Down, Home Exercise > 30 min Daily, Sitting Time <3 hours/daily - Outcomes & Goals Outcomes/Goals: Demonstrates correct Warm-up/exercise Cool-Down (S3) if = 2.5 METs, Verbalizes symptoms of exercise intolerance by Session 3 (S3), Demonstrate safe equipment use (S3) & follows exercise prescrition (6), Other: See below - Intervention & Plan Plan/Intervention: Instruct warm-up & cool-down if exercising at > 2 METs, Instruct on symptoms of exercise intolerance & actions to take, Instruct & monitor on saf, Assess intial functional capacity & safety risk, Other See below - 30-day Reassessments 30 day Reassessments:: Progressing - proper warm up explained Nutrition - Initial Assessment Nutrition - 30-Day Assessment - Program Goals Nutrition Program Goals: LDL <100 optimal. 100 - 129 Near optimal. 130 - 159 Borderline High. 160 - 189 High. Total Cholesterol <200 desirable. 200 - 239 Borderline High. >/= 240 High. HDL < 40 Low >/=60 High. Triglycerides <150 desirable. <199 optimal. VlDL 5 - 40. HgbA1C <7%. BMI <25 Patient has diagnosis of Hyperlipidemia (ICD E78)?: Yes - Visit Date of Assessment:: 04/19/22 Session #:: 8 - Cholesterol/Lipids (Other Core Measures) Determine presence & major risk factors that modify LDL goal: Cigarette smoking, Hypertension or hypertensive medication, Low HDL cholesterol <40 mg/dL*, Family history of premature CHD in Male < 55 years: female <65 yearsFa, Age men > 45 years; women >/= 55 years Outcomes/Goals: Pt IDs own risk factors & lifestyle modifications by Session 10, Verbalizes symptoms of angina & response by session 3., Pt independently manages, Other Additional Outcomes/Goals: Intervention/Plan: Advocate for lipid panel cholesterol medication if applicable, Instruct on personal lipid levels & lipid goals/NCEP guidelines, Instruct on cholesterol, Other additional plan/int Referral to dietitian:: Yes - medical nutrition therapy 30-day Reassessments:: Progressing - will attend nutrition class - Diabetes (Other Core Measures) Diabetes Type: Not Applicable - Weight Mgt (Other Care) Height: 5 ft 8 in Weight:: 62.913 kg BMI: 21.0 Outcomes/Goals: Pt sets, maintains & shows weight loss goal & trend during rehab, Other additional outcomes/goals Intervention/Plan: Instruct on ideal BMI & set weight loss goal w/patient, Assist pt to ID & incorporate diet changes for weight loss by S9, Refer to Structured Weight Loss program as appropriate, Encourage goal of using 250- 300dcal per session for weight loss, Other additional plan/interventions 30 day Reassessments:: Progressing - will attend nutrition class - Healthy Eating Habits Will attend diet classes:: Yes Outcomes/Goals:: Consume diet rich in vegs,fruits,whole grain/high fiber,fish,lean meat, Limit sat/trans fats,cholesterol & added salts & sugars, Other additional outcome/goals: Intervention/Plan:: Assess current eating habits, Other Additional plan/interventions 30-day Reassessments:: Progressing - will attend nutrition class - Education Gave educational materials for:: Signs & symptoms of hypoglycemia, Signs & symptoms of hyperglycemia, Relate diabetes to coronary artery disease, Healthy eating Nutrition - 60-Day Assessment Nutrition - 90-Day Assessment Nutrition - Final Assessment Core - Initial Assessment Core - 30-Day Assessment - Visit Date of Eval: 04/19/22 Session #:: 8 - Medication Compliance Preventative Medication(s):: Aspirin, Statin/lipid, Beta lui H/O mental health issues: depression, anxiety, or addiction?: No Doesn?t believe in the benefits of treatment?: No Believes medications are unnecessary or harmful?: No Has a concern about medication side effects?: No Expresses concern over the cost of medications?: No Outcomes/Goals: Verbalizes medications,desired effect & common side effects @ DC, Pt self-reports following medication regimen, Keeps card in wallet w/medications listed by DC, Other additional outcome/goals: Interventions/plans: Instruct on medication effects & side effects, Review medication list w/patient every two weeks, Instruct importance of taking meds as ordered & assist problem solving, Other additional 30-day Reassessments:: Progressing - stressed importance of taking meds - Tobacco Use Tobacco Use: Cigarettes Outcomes/Goals: Smoking cessation achieved or maintained by discharge, Identify aids/strategies for achieving smoking cessation by session 6, Other additional outcome/goals Interventions/plan: Instruct on effects of smoking & provide smoking cessation resource, Assist pt to set quit date & provide encouragement, Assist pt to develop strategies to achieve/maintain quit date, Assist pt w/nicotine replacement & medication for cessation success, Other additional plan/interventions 30-day Reassessments:: Progressing - pt making effort to stop smoking - Hypertension Hypertension Diagnosis:: Hypertension ICD-10 I10 Resting Blood Pressure:: 110/52 [place] [employer] Hypertension Guidelines: [place] [employer] Hypertension Guidelines. Normal BP Less than 120/80. Elevated BP 120/80. Hypertension Stage 1: BP 130-139/80-89. Hypertesnion Stage 2: BP 140 or higher/90 or higher. Hypertension Crisis: BP higher than 180/120 Outcomes/Goals: Able to verbalize/achieve optimal blood pressure <130/80, Incorporates diet changes & exercise for blood pressure control by DC, Other additional outcomes/goals Interventions/plan: Instruct on optimal blood pressure, hypertension & m edications, Instruct on effects of sodium, alcohol, stress, exercise &hypertension, Other additional plan/interventions 30 day Reassessments:: Progressing - pt taking bp meds - Tobacco Cessation Referral Smoking Cessation Referral:: Yes Individual Education/Counseling:: No Education Schedule Given:: Yes Core - 60-Day Assessment Core - 90 Day Assessment Core - Final Assessment Psychosocial - Initial Assess Psychosocial - 30-Day Assess - VIsit Date of Eval: 04/19/22 Session #:: 8 History of previous Mental disease:: No - Outcomes/Goals: See list Psychosocial Outcomes/Goals:: ID's personal stressors & 2 strategies to manage stress by discharge, Other Additional outcome/goals: - Intervention/Plan: See List Interventions/Plan:: Assess stressors,coping strategies & signs of derpression on admission, Instruct/assist pt to develop coping & personal stress Mgt strategies, Refer to Behavioral Health if appropriate, Refer to Physician if appropriate, Instruct patient to recognize signs & symptoms of depression, Instruct patient to recog, Other additional plan/intervention Psychosocial - 60-Day Assess Psychosocial - 90-Day Assess Psychosocial - Final Assessmen Patient Health Questionnaire 30-Day Re-eval Assessment 1. Little interest or pleasure in doing things: Not at all 2. Feeling down, depressed, or hopeless: Not at all 3. Trouble falling or staying asleep, or sleeping too much: Not at all 4. Feeling tired or having little energy: Nearly every day 5. Poor appetite or overeating: Not at all 6. Feeling bad about yourself -- or that you are a failure or have let yourself or your family down: Not at all 7. Trouble concentrating on things, such as reading the newspaper or watching television: Not at all 8. Moving or speaking so slowly that other people could have noticed. Or the opposite - being so fidgety or restless that you have been moving around a lot more than usual: Not at all 9. Thoughts that you would be better off , or of hurting yourself in some way: Not at all How difficult have these problems made it for you to do your work, take care of things at home, or get along with other people?: Not difficult at all Total Score: 3 Self-Efficacy 30-Day Re-eval Assessment We would like to know how confident you are in doing certain activities. Please select your confidence level for:: Select your confidence level for the following using the scale 1-10 where 1 is not at all confident and 10 is totally confident. Your score is the average of all 6 responses. Fatigue: How confident are you that you can keep the fatigue caused by your disease from interfering with the things you want to do? Select Number: 9 Physical Discomfort or Pain: How confident are you that you can keep the physical discomfort or pain of your disease from interfering with the things you want to do? Select Number: 9 Emotional Distress: How confident are you that you can keep the emotional distress caused by your disease from interfering with the things you want to do? Select Number: 10 Other Symptoms or Health Problems: How confident are you that you can keep other symptoms or health problems from interfering with the things you want to do? Select Number: 9 Different Tasks and Activities: How confident are you that you can do the different tasks and activities needed to manage your health condition so as to reduce your need to see a doctor? Select Number: 8 Medication: How confident are you that you can do things other than just taking medication to reduce how much your illness affects your everyday life? Select Number: 9 Total Score:: 9 Nutrition Survey
[2022-04-19 10:07] VITALS: BP 110/52; BMI 21.0
== END 2022-05-15 23:59 ==
LOC: CR 14:30
DX: Z98.61 Coronary angioplasty status (principal)
CPT/HCPCS: 93798

== ENCOUNTER 2022-06-03 14:30 | Outpatient (RCR) | payer OTHER, SELFPAY ==
[2022-04-19 10:07] VITALS: BMI 21.0
[2022-05-16 00:34] VITALS: BP 110/52
--- NOTE | 2022-05-20 08:50 | CR.ITP_ITS ---
Diagnosis Exercise - 60-day Assessment - Visit Date of Eval: 05/20/22 Session #:: 16 - Physician Prescribed Exercise Modalities: Treadmill, Airdyne, NuStep, SciFit, Lateral [place] Frequency: 2x/week for 18 weeks [36 sessions] Intensity: 60-80% of age predicted maximum heart rate reserve Current METSs:: 6 Target Heart Rate:: 100-130 Current RPE:: 12-14 Maximum Excercise HR:: 117 Resting Blood Pressure: 88/48 Maximum Exercise Blood Pressure: 154/72 - Outcomes & Goals Goals:: Verbalizes understanding of THR, RPE & goal METS by session 6, Documents in home exercise log/reports 30 min aerobic 5 day/wk by DC, Demonstrates accurate pulse taking by DC, Other additional outcome/goals: see below - Intervention & Plan Exercise Program Goals: Instruct on personal THR & RPE, Instruct on MET level & personal MET goal, Show patient to take own pulse /validate performance until accurate, Instruct on home exercise, Other additional plan/int - 30-day Reassessments 30 day Reassessments:: Progressing - THR explained - Physical Activity Home Exercise Physical Activity - Home Exercise: Safe Exercise, Warm-up, Self-monitoring, Cool-Down, Home Exercise > 30 min Daily, Sitting Time <3 hours/daily - Outcomes & Goals Outcomes/Goals: Demonstrates correct Warm-up/exercise Cool-Down (S3) if = 2.5 METs, Verbalizes symptoms of exercise intolerance by Session 3 (S3), Demonstrate safe equipment use (S3) & follows exercise prescrition (6), Other: See below - Intervention & Plan Plan/Intervention: Instruct warm-up & cool-down if exercising at > 2 METs, Instruct on symptoms of exercise intolerance & actions to take, Instruct & monitor on saf, Assess intial functional capacity & safety risk, Other See below - 30-day Reassessments 30 day Reassessments:: Progressing - warm up encouraged Nutrition - Initial Assessment Nutrition - 30-Day Assessment Nutrition - 60-Day Assessment - Program Goals Nutrition Program Goals: LDL <100 optimal. 100 - 129 Near optimal. 130 - 159 Borderline High. 160 - 189 High. Total Cholesterol <200 desirable. 200 - 239 Borderline High. >/= 240 High. HDL < 40 Low >/=60 High. Triglycerides <150 desirable. <199 optimal. VlDL 5 - 40. HgbA1C <7%. BMI <25 Patient has diagnosis of Hyperlipidemia (ICD E78)?: Yes - Visit Session #:: 16 - Cholesterol/Lipids (Other Core Measures) Determine presence & major risk factors that modify LDL goal: Cigarette smoking, Hypertension or hypertensive medication, Low HDL cholesterol <40 mg/dL*, Family history of premature CHD in Male < 55 years: female <65 yearsFa, Age men > 45 years; women >/= 55 years Outcomes/Goals: Pt IDs own risk factors & lifestyle modifications by Session 10, Verbalizes symptoms of angina & response by session 3., Pt independently manages, Other Additional Outcomes/Goals: Intervention/Plan: Advocate for lipid panel cholesterol medication if applicable, Instruct on personal lipid levels & lipid goals/NCEP guidelines, Instruct on cholesterol, Other additional plan/int 30-day Reassessments:: Progressing - bloodwork encouraged - Diabetes (Other Core Measures) Diabetes Type: Not Applicable - Weight Mgt (Other Care) Height: 5 ft 8 in Weight:: 62.913 kg BMI: 21.0 Diagnosis Overweight/Obesity BMI> 30% ICD-10 E66: No Diagnosis High BMI/Morbid Obesity BMI> 35% ICD-10 Z68: No Outcomes/Goals: Pt sets, maintains & shows weight loss goal & trend during rehab, Other additional outcomes/goals Intervention/Plan: Instruct on ideal BMI & set weight loss goal w/patient, Assist pt to ID & incorporate diet changes for weight loss by S9, Refer to Structured Weight Loss program as appropriate, Encourage goal of using 250- 300dcal per session for weight loss, Other additional plan/interventions 30 day Reassessments:: Progressing - will attend nutrition class - Healthy Eating Habits Will attend diet classes:: Yes Outcomes/Goals:: Consume diet rich in vegs,fruits,whole grain/high fiber,fish,lean meat, Limit sat/trans fats,cholesterol & added salts & sugars, Other additional outcome/goals: Intervention/Plan:: Assess current eating habits, Other Additional plan/interventions 30-day Reassessments:: Progressing - will attend nutrition class - Education Gave educational materials for:: Signs & symptoms of hypoglycemia, Signs & symptoms of hyperglycemia, Relate diabetes to coronary artery disease, Healthy eating Nutrition - 90-Day Assessment Nutrition - Final Assessment Core - Initial Assessment Core - 30-Day Assessment Core - 60-Day Assessment - Visit Date of Eval: 05/20/22 Session #:: 16 - Medication Compliance Preventative Medication(s):: Aspirin, Statin/lipid, Beta lui H/O mental health issues: depression, anxiety, or addiction?: No Doesn?t believe in the benefits of treatment?: No Believes medications are unnecessary or harmful?: No Has a concern about medication side effects?: No Expresses concern over the cost of medications?: No Outcomes/Goals: Verbalizes medications,desired effect & common side effects @ DC, Pt self-reports following medication regimen, Keeps card in wallet w/medications listed by DC, Other additional outcome/goals: Interventions/plans: Instruct on medication effects & side effects, Review medication list w/patient every two weeks, Instruct importance of taking meds as ordered & assist problem solving, Other additional 30-day Reassessments:: Progressing - encouraged to take meds - Tobacco Use Tobacco Use: Cigarettes Do you use smokeless tobacco?: No Outcomes/Goals: Smoking cessation achieved or maintained by discharge, Identify aids/strategies for achieving smoking cessation by session 6, Other additional outcome/goals Interventions/plan: Instruct on effects of smoking & provide smoking cessation resource, Assist pt to set quit date & provide encouragement, Assist pt to develop strategies to achieve/maintain quit date, Assist pt w/nicotine replacement & medication for cessation success, Other additional plan/interventions 30-day Reassessments:: Progressing - pt encouraged to stop smoking - Hypertension Hypertension Diagnosis:: Hypertension ICD-10 I10 Resting Blood Pressure:: 88/48 [place] [employer] Hypertension Guidelines: [place] [employer] Hypertension Guidelines. Normal BP Less than 120/80. Elevated BP 120/80. Hypertension Stage 1: BP 130-139/80-89. Hypertesnion Stage 2: BP 140 or higher/90 or higher. Hypertension Crisis: BP higher than 180/120 Peak Exercise Blood Pressure:: 154/72 Outcomes/Goals: Able to verbalize/achieve optimal blood pressure <130/80, Incorporates diet changes & exercise for blood pressure control by DC, Other additional outcomes/goals Interventions/plan: Instruct on optimal blood pressure, hypertension & medications, Instruct on effects of sodium, alcohol, stress, exercise &hypertension, Other additional plan/interventions 30 day Reassessments:: Progressing - encouraged to take meds - Tobacco Cessation Referral Smoking Cessation Referral:: No Individual Education/Counseling:: No Education Schedule Given:: Yes Core - 90 Day Assessment Core - Final Assessment Psychosocial - Initial Assess Psychosocial - 30-Day Assess Psychosocial - 60-Day Assess - VIsit Date of Eval: 05/20/22 Session #:: 16 History of previous Mental disease:: No Psychosocial - 90-Day Assess Psychosocial - Final Assessmen Patient Health Questionnaire 60-Day Re-eval Assessment 1. Little interest or pleasure in doing things: Not at all 2. Feeling down, depressed, or hopeless: Not at all 3. Trouble falling or staying asleep, or sleeping too much: Not at all 4. Feeling tired or having little energy: Nearly every day 5. Poor appetite or overeating: Not at all 6. Feeling bad about yourself -- or that you are a failure or have let yourself or your family down: Not at all 7. Trouble concentrating on things, such as reading the newspaper or watching television: Not at all 8. Moving or speaking so slowly that other people could have noticed. Or the opposite - being so fidgety or restless that you have been moving around a lot more than usual: Not at all 9. Thoughts that you would be better off , or of hurting yourself in some way: Not at all How difficult have these problems made it for you to do your work, take care of things at home, or get along with other people?: Not difficult at all Total Score: 3 Self-Efficacy 60-Day Re-eval Assessment We would like to know how confident you are in doing certain activities. Please select your confidence level for:: Select your confidence level for the following using the scale 1-10 where 1 is not at all confident and 10 is totally confident. Your score is the average of all 6 responses. Fatigue: How confident are you that you can keep the fatigue caused by your disease from interfering with the things you want to do? Select Number: 9 Physical Discomfort or Pain: How confident are you that you can keep the physical discomfort or pain of your disease from interfering with the things you want to do? Select Number: 9 Emotional Distress: How confident are you that you can keep the emotional distress caused by your disease from interfering with the things you want to do? Select Number: 10 Other Symptoms or Health Problems: How confident are you that you can keep other symptoms or health problems from interfering with the things you want to do? Select Number: 9 Different Tasks and Activities: How confident are you that you can do the different tasks and activities needed to manage your health condition so as to reduce your need to see a doctor? Select Number: 8 Medication: How confident are you that you can do things other than just taking medication to reduce how much your illness affects your everyday life? Select Number: 9 Total Score:: 9 Nutrition Survey
[2022-05-20 08:58] VITALS: BP 154/72; BP 88/48; BMI 21.0
== END 2022-06-15 23:59 ==
LOC: CR 14:30
DX: Z98.61 Coronary angioplasty status (principal)
CPT/HCPCS: 93798

== ENCOUNTER 2022-06-14 15:58 | Emergency (ER) | payer OTHER, SELFPAY ==
[2022-05-20 08:58] VITALS: BMI 21.0
[2022-06-14 16:01] VITALS: BP 138/87; PULSE 94; RESP 16; TEMP 37; BMI 22.1
[2022-06-14 16:08] VITALS: PULSE 82; RESP 14; O2SAT 96
--- NOTE | 2022-06-14 16:28 | EDS_ITS ---
HPI History of Present Illness Chief Complaint: Chest Pain Informant: patient Narrative Narrative: Patient presents with left-sided chest pain. He states it has been constant since Friday. He states any motion makes it worse especially motion of his left arm. It has not been associated at any time with nausea vomiting diaphoresis lightheadedness or shortness of breath. He shoveled his mother's driveway on Friday and had no symptoms at all. But on Friday this started. It has never gone away in 2 days. He states aspirin and Tylenol helped a little bit. He tried nitroglycerin that did nothing for him. He does have known heart disease. He had stenting in February for what sounds like a STEMI. He is still smoking and was counseled to quit. He is on Plavix aspirin metoprolol and atorvastatin. He states he is taking all of these medicines. He has no recent travel surgery immobilization personal or family history of DVT or PE. He is not having pleuritic pain. He is not having cough but he did have a little viral type URI a week or 2 ago. But those symptoms are really resolved. He has no leg pain or swelling. [facility] Medical History Acute ST elevation myocardial infarction (STEMI) (02/18/22) Atherosclerosis of coronary artery of [place] heart without angina pectoris Cardiogenic shock Coronary artery disease Hypotension Stroke Home Medications aspirin 81 mg tablet,delayed release 81 mg PO DAILY@0800 #30 tabs 02/20/22 [Rx Last Taken Unknown] atorvastatin 80 mg tablet 80 mg PO QHS #30 tabs 02/20/22 [Rx Last Taken Unknown] metoprolol succinate 25 mg tablet,extended release 24 hr 25 mg PO DAILY #30 tabs 02/20/22 [Rx Last Taken Unknown] multivit with minerals-iron 18 mg-folic ac 400 mcg-vit K 25 mcg tablet (Adults Multivitamin) 1 tab PO DAILY 03/20/22 [History Last Taken Unknown] nitroglycerin 0.4 mg sublingual tablet 0.4 mg sublingual Q5M PRN Chest Pain 03/20/22 [History Last Taken Unknown] Plavix 75 mg PO/SL DAILY 06/14/22 [History Last Taken Unknown] Allergy/AdvReac Type Severity Reaction Status Date / Time Penicillins Allergy Hives Verified 06/14/22 16:05 Family History Other Breast cancer Heart disease Surgical History History of coronary artery stent placement Social History Smoking Status: Heavy Smoker (>10/day) ROS ROS ED Constitutional Constitutional ED: Denies chills, fever(s) or subjective Eyes Eyes: Denies blurry vision or change in vision ENT ENT ED: Denies rhinorrhea or sore throat Cardiovascular Cardiovascular: Reports as per HPI; Denies palpitations or racing heartbeat Respiratory/Chest Respiratory/Chest: Denies cough or dyspnea Gastrointestinal Gastrointestinal: Denies nausea or vomiting Musculoskeletal Musculoskeletal: Denies back pain, myalgias or neck pain Integumentary Denies rash Neurologic Neurologic: Denies headache(s) Psychiatric Psychiatric: Denies anxiety Endocrine Endocrinology: Denies polydipsia or polyuria Hematologic/Lymphatic Hematologic/Lymphatic: Denies easy bleeding or easy bruising Allergic/Immunologic Allergic/Immunologic ED: Denies urticaria EXAM Physical Exam Const Vital Signs: 06/14/22 16:01 06/14/22 16:05 06/14/22 16:08 Temperature 98.6 F Temperature Source Temporal Pulse Rate 94 82 Respiratory Rate 16 14 Respiratory Effort Normal Non-Labored Blood Pressure 138/87 H Blood Pressure Mean 104 Pulse Ox 96 Oxygen Delivery Method Room Air 06/14/22 16:35 06/14/22 17:00 06/14/22 19:00 Temperature Temperature Source Pulse Rate 79 80 Respiratory Rate 17 23 H Respiratory Effort Blood Pressure 119/92 H Blood Pressure Mean 101 Pulse Ox 96 97 Oxygen Delivery Method Room Air Room Air Positive well nourished Constitutional Narrative: Patient looks very calm and comfortable on high, in the room. Nontoxic in appearance. General Appearance ED: NAD HEENT Reports moist mucous membranes Eyes General Eye ED: Negative for scleral icterus Neck supple and no JVD Chest Wall inspection of chest normal Chest Narrative: He does have some reproducible left chest wall tenderness. No crepitance. No subcu air. No erythema or lesions. Resp normal respiratory effort and clear to auscultation bilaterally Resp Narrative: No pain with deep breath. Auscultation: Negative for rales, rhonchi or wheezes Cardio regular rate and regular rhythm GI normal to inspection, nondistended, normoactive bowel sounds, soft to palpation and non-tender Back/Spine no CVA tenderness Extremity normal to inspection Extremity Narrative: No cords edema or asymmetry. Pulses are normal. General Extremety ED: Negative for edema, pulses abnormal or tenderness General Extremity: Negative for edema or pulses abnormal Neuro oriented x3 Neuro Narrative: Patient states he has some subtle weakness on the left side from prior stroke but I do not really perceive this on exam. Psych mental status grossly normal Skin no rashes or lesions noted MDM MDM MDM Narrative Medical decision making narrative: X-ray shows no acute process. EKG looks more chronic. CBC is normal including hemoglobin white count and platelets. Electrolytes are normal other than mild elevation in glucose of 190. This does need to be followed despite 2 days of continual symptomatology his troponin is 17. Because of his cardiac history he did not we did repeat troponin. He preferred not coming in the hospital. This patient has significant cardiac history. However, his symptoms are much more consistent with musculoskeletal. He has no exertional chest pain in fact h e had no chest pain with shoveling snow. 2 days later he developed chest soreness. It is constant. It is worsened with palpation and motion. He has 2 negative troponins. He otherwise feels well. He has not had nausea vomiting lightheadedness weakness diaphoresis or shortness of breath with this. Lab Data Attestation: I reviewed the patient's lab results. Labs: Laboratory Results - last 24 hr 06/14/22 06/14/22 06/14/22 16:05 16:05 19:06 WBC 8.1 RBC 4.44 L Hgb 13.9 Hct 42.1 MCV 94.8 H MCH 31.3 MCHC 33.0 RDW Std Deviation 46.7 H RDW Coeff of [place] 13.3 Plt Count 189 MPV 9.6 Immature Gran % (Auto) 0.200 Neut % (Auto) 64.5 Lymph % (Auto) 19.6 Mccracken % (Auto) 13.6 H Eos % (Auto) 1.7 Baso % (Auto) 0.4 Absolute Neuts (auto) 5.2 Absolute Lymphs (auto) 1.58 Nucleated RBC % 0 Sodium 139 Potassium 3.5 Chloride 109 H Carbon Dioxide 26.0 Anion Gap 4 L BUN 10 Creatinine 0.87 Estim Creat Clear Calc 77.00 Est GFR (MDRD) Af Amer 113 Est GFR (MDRD) Non-Af 93 BUN/Creatinine Ratio 11.5 Glucose 192 H Calcium 8.4 L Troponin I High Sens 17 18 Radiography Diagnostic Testing: Clinical Impression(s) from Imaging Studies Chest X-Ray 06/14/22 16:35 IMPRESSION: No acute radiographic abnormalities. Electronically Signed: Reji Rosario MD at 17:05 EST , Single view chest x-ray shows no acute process. This was looked at by me and read by radiology. EKG Initial EKG: Comments: EKG done for chest pain read by me shows a normal sinus rhythm. There is some changes in the anterior myocardium but this is similar to some of his prior is back in February but looks more like post STEMI changes. He had much more significant changes on february of this year. They are much less now. Discharge Plan Triage Chief Complaint: Chest Pain ED Provider: Yordan Barrientos Dx/Rx/DC Orders Clinical Impression: Chest pain Instructions: ED Chest Pain, Uncertain Cause Prescriptions: No Action atorvastatin 80 mg Tablet 80 mg PO QHS Qty: 30 0RF aspirin 81 mg Tablet,Delayed Release (Dr/Ec) 81 mg PO DAILY@0800 Qty: 30 0RF metoprolol succinate 25 mg Tablet Extended Release 24 Hr 25 mg PO DAILY Qty: 30 0RF nitroglycerin 0.4 mg Tablet, Sublingual 0.4 mg SUBLINGUAL Q5M PRN (Reason: Chest Pain) Rx Instructions: do not exceed 3 doses per episode Adults Multivitamin 18 mg iron-400 mcg-25 mcg Tablet 1 tab PO DAILY Plavix 75 mg PO/SL DAILY [facility] [Primary [facility] Provider] - 3-5 Days if not improving Disposition Disposition: Home, Self Care
--- NOTE | 2022-06-14 16:30 | EKG12_ITS ---
Test Reason : Blood Pressure : / mmHG Vent. Rate : 083 BPM Atrial Rate : 083 BPM P-R Int : 166 ms QRS Dur : 100 ms QT Int : 382 ms P-R-T Axes : 073 077 062 degrees QTc Int : 448 ms Normal sinus rhythm Possible Anterior infarct , age undetermined Abnormal ECG Confirmed by YANI MUNOZ, ARASH ([id number]), editor at large ISMA RUBALCAVA ([id number]) on 06/18/2022 11:15:50 AM Referred By: PRESTON Confirmed By:ARASH LOMELI MD
[2022-06-14] MEDS: Aspirin 81 MG TAB.CHEW 324 MG PO (16:31)
[2022-06-14 16:35] VITALS: O2SAT 96
--- NOTE | 2022-06-14 16:35 | RAD_ITS ---
INDICATION: chest pain EXAMINATION/TECHNIQUE: X-RAY - XR Chest 1 View COMPARISON: 02/18/2022. FINDINGS: The lungs are clear. The cardiomediastinal silhouette is unremarkable. No pleural effusion or pneumothorax. Degenerative changes of the thoracic spine. RAD/Chest 1 View (Portable) IMPRESSION: No acute radiographic abnormalities. Electronically Signed: Reji Rosario MD at 17:05 EST ,
--- NOTE | 2022-06-14 16:38 | NURSING ---
[facility] # [id number] I[facility] # [id number]
[2022-06-14 16:39] LABS: Absolute Lymphocyte Count 1.58 X10^3/uL (0.83-4.51); Absolute Neutrophil Count 5.2 X10^3/uL (2.0-7.7); Basophil# 0.03 X10^3/uL; Basophil% 0.4 % (0-1); Eosinophil# 0.14 X10^3/uL; Eosinophils% 1.7 % (0-5); Hematocrit 42.1 % (40-54); Hemoglobin 13.9 g/dL (13.0-16.5); Lymphocyte # 1.58 X10^3/ul (0.83-4.51); Lymphocyte % 19.6 % (19-41); Mean Corpuscular Hgb 31.3 pg (27.0-32.0); Mean Corpuscular Volume 94.8 fL (80-94); Mean Platelet Vol. 9.6 fl (6.2-12.0); Monocyte% 13.6 % (0-10); NRBC Flagged by Analyzer 0 % (0-5); Neutrophil # 5.21 X10^3/uL (2.7-7.7); Neutrophil % 64.5 % (47-70); Platelet Count 189 K/mm3 (150-450); RBC Distribution Width CV 13.3 % (11.6-14.6); RBC Distribution Width SD 46.7 fl (35.1-43.9); Red Blood Count 4.44 M/mm3 (4.6-6.2); White Blood Count 8.1 K/mm3 (4.4-11.0)
[2022-06-14 17:00] VITALS: PULSE 79; RESP 17
[2022-06-14 17:04] LABS: Anion Gap 4 (5-15); BUN 10 mg/dL (7-18); BUN/Creat Ratio 11.5 RATIO (10-20); Calcium,Total 8.4 mg/dL (8.5-10.1); Chloride 109 mmol/L (98-107); Creatinine, Serum 0.87 mg/dL (0.70-1.30); EST Glomerular Filtration Rate 93 mL/min (>60); Est Glom Filt Rate - Afr Amer 113 mL/min (>60); Glucose 192 mg/dL (74-106); Potassium 3.5 mmol/L (3.5-5.1); Sodium Level 139 mmol/L (136-145); Troponin-I HS (w/2H Reflex) 17 pg/mL (3.0-78.0)
--- NOTE | 2022-06-14 17:50 | ED.RN ---
DR. JOHNSTON AWARE PT IS REQUESTING PAIN MEDICATION. NO NEW ORDERS AT THIS TIME. PT RESTING
[2022-06-14 18:35] LABS: Reflex Troponin-HS? (from REC) Y
[2022-06-14 19:00] VITALS: BP 119/92; PULSE 80; RESP 23; O2SAT 97
[2022-06-14 19:32] LABS: Troponin-I HS 18 pg/mL (3.0-78.0)
[2022-06-14 20:06] VITALS: BP 119/67; PULSE 74; RESP 18; O2SAT 100
[2022-06-14] MEDS: HYDROcodone Bitartrate/Apap 5/325 Tablet PO (20:08)
== END 2022-06-14 20:10 | disposition home or self-care (01) ==
PROVIDERS: Emergency Provider Emergency Medicine; Visit Provider Emergency Medicine
DX: R07.9 Chest pain, unspecified (principal); I25.10 Atherosclerotic heart disease of native coronary artery without angina pectoris; F17.200 Nicotine dependence, unspecified, uncomplicated
CPT/HCPCS: 71045; 80048; 84484; 85025; 93005; 99285; A4216

== ENCOUNTER 2022-07-15 14:30 | Outpatient (RCR) | payer OTHER, SELFPAY ==
[2022-05-20 08:58] VITALS: BMI 21.0
[2022-06-16 00:28] VITALS: BP 154/72; BP 88/48
--- NOTE | 2022-06-21 13:41 | PCM.CR.ITP ---
Diagnosis Exercise - 90-day Assessment - Visit Date of Eval: 06/21/22 Session #:: 20 - Physician Prescribed Exercise Modalities: Treadmill, Rower, Airdyne, NuStep, SciFit, Lateral [place]ron Intensity: 60-80% of age predicted maximum heart rate reserve - Outcomes & Goals Goals:: Verbalizes understanding of THR, RPE & goal METS by session 6, Documents in home exercise log/reports 30 min aerobic 5 day/wk by DC, Demonstrates accurate pulse taking by DC, Other additional outcome/goals: see below - Intervention & Plan Exercise Program Goals: Instruct on personal THR & RPE, Instruct on MET level & personal MET goal, Show patient to take own pulse /validate performance until accurate, Instruct on home exercise, Other additional plan/int - 30-day Reassessments 30 day Reassessments:: Progressing - Physical Activity Home Exercise Physical Activity - Home Exercise: Safe Exercise, Warm-up, Self-monitoring, Cool-Down, Home Exercise > 30 min Daily, Sitting Time <3 hours/daily - Outcomes & Goals Outcomes/Goals: Demonstrates correct Warm-up/exercise Cool-Down (S3) if = 2.5 METs, Verbalizes symptoms of exercise intolerance by Session 3 (S3), Demonstrate safe equipment use (S3) & follows exercise prescrition (6), Other: See below - Intervention & Plan Plan/Intervention: Instruct warm-up & cool-down if exercising at > 2 METs, Instruct on symptoms of exercise intolerance & actions to take, Instruct & monitor on saf, Assess intial functional capacity & safety risk, Other See below - 30-day Reassessments 30 day Reassessments:: Progressing Nutrition - Initial Assessment Nutrition - 30-Day Assessment Nutrition - 60-Day Assessment Nutrition - 90-Day Assessment - Visit Date of Assessment:: 06/21/22 Session #:: 20 - Cholesterol/Lipids (Other Core Measures) Determine presence & major risk factors that modify LDL goal: Cigarette smoking, Hypertension or hypertensive medication, Low HDL cholesterol <40 mg/dL*, Family history of premature CHD in Male < 55 years: female <65 yearsFa, Age men > 45 years; women >/= 55 years Outcomes/Goals: Pt IDs own risk factors & lifestyle modifications by Session 10, Verbalizes symptoms of angina & response by session 3., Pt independently manages, Other Additional Outcomes/Goals: Intervention/Plan: Advocate for lipid panel cholesterol medication if applicable, Instruct on personal lipid levels & lipid goals/NCEP guidelines, Instruct on cholesterol, Other additional plan/int 30-day Reassessments:: Progressing - Weight Mgt (Other Care) Height: 5 ft 8 in Weight:: 62.913 kg BMI: 21.0 Diagnosis High BMI/Morbid Obesity BMI> 35% ICD-10 Z68: No Outcomes/Goals: Pt sets, maintains & shows weight loss goal & trend during rehab, Other additional outcomes/goals Intervention/Plan: Instruct on ideal BMI & set weight loss goal w/patient, Assist pt to ID & incorporate diet changes for weight loss by S9, Refer to Structured Weight Loss program as appropriate, Encourage goal of using 250-300dcal per session for weight loss, Other additional plan/interventions 30 day Reassessments:: Progressing - Healthy Eating Habits Will attend diet classes:: Yes Outcomes/Goals:: Consume diet rich in vegs,fruits,whole grain/high fiber,fish,lean meat, Limit sat/trans fats,cholesterol & added salts & sugars, Other additional outcome/goals: Intervention/Plan:: Assess current eating habits, Other Additional plan/interventions 30-day Reassessments:: Progressing - Education Gave educational materials for:: Signs & symptoms of hypoglycemia, Signs & symptoms of hyperglycemia, Relate diabetes to coronary artery disease, Healthy eating Nutrition - Final Assessment Core - Initial Assessment Core - 30-Day Assessment Core - 60-Day Assessment Core - 90 Day Assessment - Visit Date of Eval: 06/21/22 Session #:: 20 - Medication Compliance Preventative Medication(s):: Aspirin, Statin/lipid, Beta lui Doesn?t believe in the benefits of treatment?: No Believes medications are unnecessary or harmful?: No Has a concern about medication side effects?: No Expresses concern over the cost of medications?: No Outcomes/Goals: Verbalizes medications,desired effect & common side effects @ DC, Pt self-reports following medication regimen, Keeps card in wallet w/medications listed by DC, Other additional outcome/goals: Interventions/plans: Instruct on medication effects & side effects, Review medication list w/patient every two weeks, Instruct importance of taking meds as ordered & assist problem solving, Other additional 30-day Reassessments:: Progressing - Tobacco Use Tobacco Use: Cigarettes Do you use smokeless tobacco?: No Outcomes/Goals: Smoking cessation achieved or maintained by discharge, Identify aids/strategies for achieving smoking cessation by session 6, Other additional outcome/goals Interventions/plan: Instruct on effects of smoking & provide smoking cessation resource, Assist pt to set quit date & provide encouragement, Assist pt to develop strategies to achieve/maintain quit date, Assist pt w/nicotine replacement & medication for cessation success, Other additional plan/interventions 30-day Reassessments:: Progressing - Hypertension Hypertension Diagnosis:: Hypertension ICD-10 I10 Resting Blood Pressure:: 112/58 [place] [employer] Hypertension Guidelines: [place] [employer] Hypertension Guidelines. Normal BP Less than 120/80. Elevated BP 120/80. Hypertension Stage 1: BP 130-139/80-89. Hypertesnion Stage 2: BP 140 or higher/90 or higher. Hypertension Crisis: BP higher than 180/120 Peak Exercise Blood Pressure:: 134/68 Outcomes/Goals: Able to verbalize/achieve optimal blood pressure <130/80, Incorporates diet changes & exercise for blood pressure control by DC, Other additional outcomes/goals Interventions/plan: Instruct on optimal blood pressure, hypertension & medications, Instruct on effects of sodium, alcohol, stress, exercise &hypertension, Other additional plan/interventions 30 day Reassessments:: Progressing - Tobacco Cessation Referral Smoking Cessation Referral:: No Individual Education/Counseling:: No Education Schedule Given:: Yes Core - Final Assessment Psychosocial - Initial Assess Psychosocial - 30-Day Assess Psychosocial - 60-Day Assess Psychosocial - 90-Day Assess - VIsit Date of Eval: 06/21/22 Session #:: 20 History of previous Mental disease:: No Psychosocial - Final Assessmen Patient Health Questionnaire 90-Day Re-eval Assessment 1. Little interest or pleasure in doing things: Not at all 2. Feeling down, depressed, or hopeless: Not at all 3. Trouble falling or staying asleep, or sleeping too much: Not at all 4. Feeling tired or having little energy: Not at all 5. Poor appetite or overeating: Not at all 6. Feeling bad about yourself -- or that you are a failure or have let yourself or your family down: Not at all 7. Trouble concentrating on things, such as reading the newspaper or watching television: Not at all 8. Moving or speaking so slowly that other people could have noticed. Or the opposite - being so fidgety or restless that you have been moving around a lot more than usual: Not at all How difficult have these problems made it for you to do your work, take care of things at home, or get along with other people?: Not difficult at all Total Score: 0 Self-Efficacy 90-Day Re-eval Assessment We would like to know how confident you are in doing certain activities. Please select your confidence level for:: Select your confidence level for the following using the scale 1-10 where 1 is not at all confident and 10 is totally confident. Your score is the average of all 6 responses. Fatigue: How confident are you that you can keep the fatigue caused by your disease from interfering with the things you want to do? Select Number: 9 Physical Discomfort or Pain: How confident are you that you can keep the physical discomfort or pain of your disease from interfering with the things you want to do? Select Number: 9 Emotional Distress: How confident are you that you can keep the emotional distress caused by your disease from interfering with the things you want to do? Select Number: 10 Other Symptoms or Health Problems: How confident are you that you can keep other symptoms or health problems from interfering with the things you want to do? Select Number: 9 Different Tasks and Activities: How confident are you that you can do the different tasks and activities needed to manage your health condition so as to reduce your need to see a doctor? Select Number: 8 Medication: How confident are you that you can do things other than just taking medication to reduce how much your illness affects your everyday life? Select Number: 9 Total Score:: 9 Nutrition Survey
[2022-06-21 13:45] VITALS: BP 112/58; BP 134/68; BMI 21.0
== END 2022-07-16 23:59 ==
LOC: CR 14:30
DX: Z98.61 Coronary angioplasty status (principal)
CPT/HCPCS: 93798

== ENCOUNTER 2022-07-26 14:15 | Outpatient (RCR) | payer OTHER, SELFPAY ==
[2022-06-21 13:45] VITALS: BMI 21.0
[2022-07-17 00:31] VITALS: BP 112/58; BP 134/68; BP 88/48
== END 2022-08-13 23:59 ==
LOC: CR 14:15
DX: Z98.61 Coronary angioplasty status (principal)
CPT/HCPCS: 93798

== ENCOUNTER 2023-07-16 09:53 | Inpatient (IN) | payer OTHER, SELFPAY ==
[2022-06-21 13:45] VITALS: BMI 21.0
[2023-07-16] VITALS (8 sets, daily range): BP systolic 92–137; BP diastolic 61–89; PULSE 74–91; RESP 16–24; TEMP 36.3–36.7; O2SAT 94–98; BMI 22.8; BMI 20.5
--- NOTE | 2023-07-16 10:20 | ED.VIS.DYS ---
HPI History of Present Illness Chief Complaint: Shortness of Breath Detail of Chief Complaint: Shortness of breath and chest tightness Informant: patient Narrative Narrative: Patient presents to the emergency department complaint of shortness of breath and chest tightness that is been ongoing for about 2 weeks off-and-on. Patient states that the symptoms have become more frequent. Chest tightness and shortness of breath usually resolves with rest. Symptoms can last up to 10 minutes. Patient has history of 6 cardiac stents. Last stenting was about a year ago and he had 2 stents. [facility] Symptoms not always exertional. Patient states that he oftentimes feels like his heart is racing when this happens but did not take his pulse. Approximately a year ago he had stenting of his left leg sounds like to treat claudication. PFSH PFSH Medical History Acute ST elevation myocardial infarction (STEMI) (02/18/22) Atherosclerosis of coronary artery of [place] heart without angina pectoris Cardiogenic shock Coronary artery disease Hypotension PAD (peripheral artery disease) Stroke Tobacco use Home Medications atorvastatin 80 mg tablet 80 mg PO QHS CHOLESTEROL #30 tabs 02/20/22 [Rx Last Taken 07/15/23] metoprolol succinate 25 mg tablet,extended release 24 hr 25 mg PO DAILY BLOOD PRESSURE #30 tabs 02/20/22 [Rx Last Taken 07/16/23] multivit with minerals-iron 18 mg-folic ac 400 mcg-vit K 25 mcg tablet (Adults Multivitamin) 1 tab PO DAILY HEALTH MAINTENANCE 03/20/22 [History Last Taken 07/16/23] nitroglycerin 0.4 mg sublingual tablet 0.4 mg sublingual Q5M PRN CHEST PAIN 03/20/22 [History Last Taken Unknown] aspirin 81 mg tablet,delayed release 81 mg PO DAILY HEART HEALTH 07/16/23 [History Last Taken 07/16/23] clopidogrel 75 mg tablet 75 mg PO DAILY BLOOD THINNER 07/16/23 [History Last Taken 07/16/23] Allergy/AdvReac Type Severity Reaction Status Date / Time Penicillins Allergy Hives Verified 06/14/22 16:05 Family History Other Breast cancer Heart disease Surgical History History of coronary artery stent placement Social History Smoking Status: Heavy Smoker (>10/day) ROS ROS ED Review of Systems ROS Unobtainable: other Constitutional Constitutional ED: Reports lethargy; Denies chills, fever(s), sweats or weight loss Eyes Eyes: Denies blurry vision, change in vision or diplopia ENT ENT ED: Denies rhinorrhea or sore throat Cardiovascular Cardiovascular: Reports chest pain and racing heartbeat; Denies orthopnea Respiratory/Chest Respiratory/Chest: Reports dyspnea and dyspnea on exertion; Denies cough, orthopnea or sputum Gastrointestinal Gastrointestinal: Denies abdominal pain, diarrhea, nausea or vomiting Genitourinary Genitourinary ED: Denies dysuria, hematuria or urinary frequency Musculoskeletal Musculoskeletal: Denies arthralgias, back pain, myalgias or neck pain Integumentary Denies abscess, Abrasions or rash Neurologic Neurologic: Denies headache(s) or weakness Psychiatric Psychiatric: Denies anxiety, depression or suicidal thoughts Endocrine Endocrinology: Denies polydipsia, polyphagia or polyuria Hematologic/Lymphatic Hematologic/Lymphatic: Denies easy bleeding, easy bruising or lymphadenopathy Allergic/Immunologic Allergic/Immunologic ED: Denies mouth swelling, tongue swelling or urticaria EXAM Physical Exam Const Vital Signs: 07/16/23 09:55 07/16/23 10:43 07/16/23 10:44 Temperature 98 F Temperature Source Temporal Pulse Rate 91 Respiratory Rate 24 H Respiratory Effort Normal Non-Labored Respiratory Depth Normal Respiratory Pattern Normal Blood Pressure 118/77 Blood Pressure Mean 90 Pulse Ox 98 Oxygen Delivery Method Room Air Room Air Room Air 07/16/23 12:39 Temperature Temperature Source Pulse Rate 81 Respiratory Rate 16 Respiratory Effort Respiratory Depth Respiratory Pattern Blood Pressure 132/89 H Blood Pressure Mean 103 Pulse Ox 95 Oxygen Delivery Method Positive well nourished and well developed General Appearance ED: well developed and NAD HEENT Reports TM's clear and moist mucous membranes normocephalic and atraumatic; Negative for trauma or tenderness Tympanic Membrane ED: Yes TM's clear Eyes PERRL and EOMs intact bilaterally General Eye ED: Negative for pale conjunctiva or scleral icterus Neck no lymphadenopathy, supple and no JVD General: Negative for tenderness Chest Wall inspection of chest normal and palpation of chest normal Chest: Negative for tenderness Resp normal respiratory effort and clear to auscultation bilaterally Effort and Inspection: Negative for respiratory distress or pain with movement Auscultation: Negative for rhonchi, wheezes or diminished lung sounds Cardio regular rate, regular rhythm, S1 normal heart sound, S2 normal heart sound and no murmurs Peripheral Pulses: pulses 2+ throughout GI normal to inspection, nondistended, normoactive bowel sounds, soft to palpation, non-tender, non-distended and no masses Back/Spine no CVA tenderness and no thoracic nor lumbar tenderness Extremity normal to inspection General Extremety ED: Negative for edema General Extremity: Negative for edema Neuro oriented x3, CN's II-XII intact bilaterally, no sensory deficits noted and gait normal Sensorium / Orientation: awake, alert, oriented to person, oriented to place and oriented to time Motor Exam: strength 5/5 throughout and strength abnormal Psych mental status grossly normal Skin no rashes or lesions noted and no wounds MDM MDM MDM Narrative Medical decision making narrative: Patient presents with shortness of breath and chest discomfort. Patient with known heart history multiple cardiac stents. Symptoms typically get better with rest. IV line established on arrival. EKG obtained on arrival shows sinus rhythm with rate of 90 bpm with old anterior infarct and nonspecific ST changes. CBC with differential showed a white count of 8.9 with hemoglobin 14 and platelet count of 143. Chemistries unremarkable. D-dimer elevated at 3.31 therefore CTA of the chest was obtained which was negative for PE or dissection. Patient's troponin did return elevated 254. Suspect non-ST elevation [place]. Patient started on heparin drip. Case will be discussed with hospitalist to evaluate patient for admission. [facility] and [facility] we [facility] the patient here to take care of appropriately. Lab Data Attestation: I reviewed the patient's lab results. Labs: Laboratory Results - last 24 hr 07/16/23 07/16/23 10:10 12:36 WBC 8.9 RBC 4.45 L Hgb 14.0 Hct 41.7 MCV 93.7 MCH 31.5 MCHC 33.6 RDW Std Deviation 42.5 RDW Coeff of Wisam 12.3 Plt Count 143 L MPV 10.0 Immature Gran % (Auto) 0.200 Neut % (Auto) 47.9 Lymph % (Auto) 37.1 Beck[place] % (Auto) 9.7 Eos % (Auto) 4.6 Baso % (Auto) 0.5 Absolute Neuts (auto) 4.2 Absolute Lymphs (auto) 3.28 Nucleated RBC % 0 PT 13.9 INR 1.1 APTT 29.7 D-Dimer Quant (PE/DVT) 3.31 H* Sodium 137 Potassium 3.6 Chloride 107 Carbon Dioxide 26.0 Anion Gap 4 L BUN 19 H Creatinine 1.05 Estim Creat Clear Calc 64.93 Est GFR (MDRD) Af Amer 90 Est GFR (MDRD) Non-Af 75 BUN/Creatinine Ratio 18.1 Glucose 204 H Calcium 8.4 L Troponin I High Sens 254 H* 223 H* Radiography Diagnostic Testing: Clinical Impression(s) from Imaging Studies Chest X-Ray 07/16/23 10:50 IMPRESSION: No acute abnormality is seen. Electronically Signed: Manuel Champagne MD at 11:12 EST , Chest CTA 07/16/23 11:20 IMPRESSION: No evidence of pulmonary embolism. Mild scarring at the right lung base. Electronically Signed: Manuel Champagne MD at 12:44 EST , 1 view chest x-ray obtained interpreted by myself as no evidence of infiltrate or pneumothorax or acute disease process. Radiology In agreement. EKG Initial EKG: Attestation: I personally reviewed and interpreted this EKG as follows: Comments: Sinus rhythm with rate of 90 bpm with old anterior infarct. Patient with nonspecific ST changes in lateral leads. Prior EKG tracings: available for review Prior: Changed Critical Care Time Critical care time (excluding procedures): 30-74 minutes, Including time spent:, Discussing w/Patient &/or Family/Produce Specialist, Discussing w/Consultants, Arranging Admission or Transfer and - (30 min) Discharge Plan Dx/Rx/DC Orders Clinical Impression: Non-ST elevated myocardial infarction, History of coronary artery disease, Chest pain Disposition Disposition: Acute Care [facility] Discharge Date/Time: 07/16/23 13:44
[2023-07-16 10:36] LABS: Absolute Lymphocyte Count 3.28 X10^3/uL (0.83-4.51); Absolute Neutrophil Count 4.2 X10^3/uL (2.0-7.7); Basophil# 0.04 X10^3/uL; Basophil% 0.5 % (0-1); Eosinophil# 0.41 X10^3/uL; Eosinophils% 4.6 % (0-5); Hematocrit 41.7 % (40-54); Lymphocyte # 3.28 X10^3/ul (0.83-4.51); Lymphocyte % 37.1 % (19-41); Mean Corp Hgb Conc 33.6 g/dL (32-36); Mean Corpuscular Hgb 31.5 pg (27.0-32.0); Mean Corpuscular Volume 93.7 fL (80-94); Monocyte# 0.86 X10^3/uL; Monocyte% 9.7 % (0-10); NRBC Flagged by Analyzer 0 % (0-5); Neutrophil # 4.24 X10^3/uL (2.7-7.7); Neutrophil % 47.9 % (47-70); Platelet Count 143 K/mm3 (150-450); RBC Distribution Width CV 12.3 % (11.6-14.6); RBC Distribution Width SD 42.5 fl (35.1-43.9); Red Blood Count 4.45 M/mm3 (4.6-6.2); White Blood Count 8.9 K/mm3 (4.4-11.0)
[2023-07-16] MEDS: Aspirin 81 MG TAB.CHEW 324 MG PO (10:41)
[2023-07-16] MEDS: 0.9% Normal Saline (1000mL) 1,000 ML 150 ML IV ×2 (10:41→18:02)
[2023-07-16 10:48] LABS: D-Dimer Quantitative (DVT/PE) 3.31 FEU/ug/m (0.27-0.49)
--- NOTE | 2023-07-16 10:50 | RAD_ITS ---
STUDY: X-RAY CHEST REASON FOR EXAM: Male, 68 years old. Shortness of breath. Tachycardia. Chest pain. TECHNIQUE: Single AP portable view of the chest. COMPARISON: Comparison is made with prior study dated June 14, 2022. FINDINGS: EKG electrodes are seen. The lungs are clear and expanded. There is no demonstrated pleural abnormality. Normal size heart. Normal mediastinum and ton. Normal visualized pulmonary arteries. Normal visualized aortic arch and descending thoracic aorta. There are diffuse degenerative changes of the visualized thoracic spine. Healed right midclavicular fracture. There is degenerative osteoarthritis of the bilateral shoulders. Shrapnel is seen overlying the left shoulder joint. There is no demonstrated abnormality of the visualized soft tissue structures of the upper abdomen. RAD/Chest 1 View (Portable) IMPRESSION: No acute abnormality is seen. Electronically Signed: Manuel Champagne MD at 11:12 EST ,
[2023-07-16 11:11] LABS: Anion Gap 4 (5-15); BUN 19 mg/dL (7-18); BUN/Creat Ratio 18.1 RATIO (10-20); Calcium,Total 8.4 mg/dL (8.5-10.1); Chloride 107 mmol/L (98-107); Creatinine, Serum 1.05 mg/dL (0.70-1.30); EST Glomerular Filtration Rate 75 mL/min (>60); Est Glom Filt Rate - Afr Amer 90 mL/min (>60); Estimated Creatinine Clearance 64.93 ml/min; Glucose 204 mg/dL (74-106); Potassium 3.6 mmol/L (3.5-5.1); Sodium Level 137 mmol/L (136-145); Troponin-I HS (w/2H Reflex) 254 pg/mL (3.0-78.0)
--- NOTE | 2023-07-16 11:11 | ED.RN ---
LAB CALLED TROPONIN OF 254. DR DUMONT
--- NOTE | 2023-07-16 11:20 | CT_ITS ---
STUDY: CTA CHEST REASON FOR EXAM: Male, 68 years old. Chest pain, elevated d-dimer RADIATION DOSAGE (If Supplied By Facility): CTDIvol = ( 7.89 ) mGy, DLP = ( 246.43 ) mGycm TECHNIQUE: The examination was performed with the intravenous administration of IV 100mL Isovue-370. Post-processing of the angiographic images was performed, with multiplanar reformation and 3D reconstruction. Individualized dose optimization techniques were used for this CT. COMPARISON: None. FINDINGS: Normal enhancement of the main pulmonary artery and right and left pulmonary arteries. Normal enhancement of the bilateral peripheral pulmonary arteries. There is no demonstrated pulmonary embolism. There is atherosclerotic calcification of the aortic arch with tortuosity. There is no demonstrated aortic dissection. There are calcifications of the coronary arteries. Normal mediastinum. Normal hilar regions. Normal visualized trachea and bronchi. Hyperinflation. Minimal linear scarring at the right lung base. Normal pleura. Normal chest wall structures. There are degenerative changes of thoracic spine. Calcified splenic granuloma. CT/CTA Chest W/WO Contrast IMPRESSION: No evidence of pulmonary embolism. Mild scarring at the right lung base. Electronically Signed: Manuel Champagne MD at 12:44 EST ,
[2023-07-16 11:47] LABS: International Normalized Ratio 1.1; Partial Thromboplast Time 29.7 Seconds (24.1-36.2); Prothrombin Time (Protime)PT. 13.9 SECONDS (11.7-14.9)
--- NOTE | 2023-07-16 11:52 | NURSING ---
CALLING [facility]
--- NOTE | 2023-07-16 12:01 | NURSING ---
CALLED GRAEME THOMAS, TALKED TO ESTELA. DO WHAT IS IN THE BEST INTEREST OF THE PATIENT
--- OUTSIDE RECORDS SUMMARY | 2023-07-16 12:16 | XMS RPT_ITS | CCD ---
Author Name Unknown Address [address] [place] [address] Organization [facility] Care Team Providers Care Yardage Control Clerk Name Role Phone CHERYLE BARGER MOR Unavailable Unavailable Allergies Allergy Classification Reported Allergen(s) Allergy Type Date of Onset Reaction(s) Facility (1 source) Penicillin; Translations: [PENICILLIN] Drug Allergy 05-10-2017 [facility] Other [place] Repository Problems Problem Classification Problem Date Documented Da te Episodic/Chronic Nonspecific chest pain (1 source) Other chest pain; Translations: [Other chest pain] Onset: 05-23-2018 Episodic Other nervous system disorders (1 source) Paresthesia of skin; Translations: [Paresthesia of skin] Onset: 05-23-2018 Episodic Results Test Name Value Interpretation Reference Range Facil ity Encounters Encounter Date Encounter Type Care Provider Facility Start: 05-23-2018 End: 05-23-2018 Emergency department patient visit CHERYLE BARGER [facility] Summary Purpose Family History No Family History Records FoundNo Family History Records FoundNo Family History Records Found Advance Directives No Advanced Directives Records FoundNo Advanced Directives Records FoundNo Advanced Directives Records Found Additional Source Comments (unrecognized sect ion and content) No Status Records FoundNo Status Records FoundNo Status Records Found INFORMATION SOURCE (unrecogn ized section and content) DATE CREATED AUTHOR AUTHOR'S ORGANIZ ATION 05/26/2018 [facility] DATE CREATED AUTHOR AUTHOR'S ORGANIZ ATION 05/27/2018 [facility] FOR RECORDS PERTAINING TO PATIENTS WHO ARE OR HAVE BEEN ENROLLED IN A CHEMICAL DEPENDENCY/SUBSTANCEABUSE PROGRAM, SOME INFORMATION MAY BE OMITTED. This clinical summary was aggregated from multiple sources. Caution should be exercised in using it in the provision of clinical care. This summary normalizes information from multiple sources, and as a consequence, information in this document may materially change the coding, format and clinical context of patient data. In addition, data may be omitted in some cases. CLINICAL DECISIONS SHOULD BE BASED ON THE PRIMARY CLINICAL RECORDS. [facility] provides no warranty or guarantee of the accuracy or completeness of information in this document.
[2023-07-16 12:29] LABS: Reflex Troponin-HS? (from REC) Y
[2023-07-16] MEDS: Heparin Injection (Vial) 5,000 UNIT/ML VIAL 4500 UNIT IV (12:49)
[2023-07-16] MEDS: HEPARIN/D5w 25,000 UNITS 25,000 UNITS/250 ML IV.SOLN. 10 UNITS CONT INF (12:51)
[2023-07-16 13:19] LABS: Troponin-I HS 223 pg/mL (3.0-78.0)
--- NOTE | 2023-07-16 13:28 | HP.PCM.HOS_ITS ---
HPI - General General Date of Admission: 07/16/23 Date of Service: 07/16/23 Chief Complaint: SOB, rapid heart beat, elevated trop HPI Narrative EDWARD URBAN, is a 68y/o male hx CAD, STEMI 2021, PAD with bypass and left leg, presented to [facility] 07/16/23 for SOB and chest tightness intermittently for 2 weeks but sx becoming more frequent. Symptoms can last about 10 minutes and usually resolve with rest. Has history of 6 cardiac stents with last stenting 2 years ago requiring 2 stents. In ED patient had some subtle ST depressions in 1, V5, V6 and troponin of 254 so patient started on heparin drip. Additionally he did have elevated D-dimer so CTA obtained but there was no PE or dissection. Hospitalist contacted for admission. Patient evaluated at bedside and he reports that for about 2 weeks he has had shortness of breath and feeling almost like a rapid heart rate that improves with rest. These episodes have been increasing with frequency over the past couple weeks and he was supposed to go see his quality assurance tech today however they told him to come to the ER based on his symptoms. Last episode was yesterday. Denies any change in his chronic cough and no swelling in legs, no other acute complaints. [facility] Medical History Acute ST elevation myocardial infarction (STEMI) (02/18/22) Atherosclerosis of coronary artery of [place] heart without angina pectoris Cardiogenic shock Coronary artery disease Hypotension PAD (peripheral artery disease) Stroke Tobacco use Home Medications atorvastatin 80 mg tablet 80 mg PO QHS CHOLESTEROL #30 tabs 02/20/22 [Rx Last Taken 07/15/23] metoprolol succinate 25 mg tablet,extended release 24 hr 25 mg PO DAILY BLOOD PRESSURE #30 tabs 02/20/22 [Rx Last Taken 07/16/23] multivit with minerals-iron 18 mg-folic ac 400 mcg-vit K 25 mcg tablet (Adults Multivitamin) 1 tab PO DAILY HEALTH MAINTENANCE 03/20/22 [History Last Taken 07/16/23] nitroglycerin 0.4 mg sublingual tablet 0.4 mg sublingual Q5M PRN CHEST PAIN 03/20/22 [History Last Taken Unknown] aspirin 81 mg tablet,delayed release 81 mg PO DAILY HEART HEALTH 07/16/23 [History Last Taken 07/16/23] clopidogrel 75 mg tablet 75 mg PO DAILY BLOOD THINNER 07/16/23 [History Last Taken 07/16/23] Allergy/AdvReac Type Severity Reaction Status Date / Time Penicillins Allergy Hives Verified 06/14/22 16:05 Family History Other Breast cancer Heart disease Surgical History History of coronary artery stent placement Social History Smoking Status: Heavy Smoker (>10/day) ROS ROS Narrative General: Denies fever/chills HENT: Denies headache, denies stuffy nose, denies sore throat EYES: Denies changes in vision Resp: Chronic cough, increased episodes of shortness of breath that improve with rest Cardiac: Feeling like he has rapid heart rate GI: Denies abdominal pain, denies changes in bowel, denies nausea/vomiting : Denies changes in urination Extremity: Denies swelling MSK: Denies weakness Neuro: Denies any numbness/tingling Heme: Denies any bleeding or bruising Skin: Denies rashes Psychiatric: No complaints voiced Vital Signs Vital Signs Vital Signs: 07/16/23 09:55 07/16/23 10:43 07/16/23 10:44 Temperature 98 F Temperature Source Temporal Pulse Rate 91 Respiratory Rate 24 H Respiratory Effort Normal Non-Labored Respiratory Depth Normal Respiratory Pattern Normal Blood Pressure 118/77 Blood Pressure Mean 90 Pulse Ox 98 Oxygen Delivery Method Room Air Room Air Room Air 07/16/23 12:39 Temperature Temperature Source Pulse Rate 81 Respiratory Rate 16 Respiratory Effort Respiratory Depth Respiratory Pattern Blood Pressure 132/89 H Blood Pressure Mean 103 Pulse Ox 95 Oxygen Delivery Method Weight Weight: 68.175 kg Body Mass Index (BMI) 22.8 Physical Exam Narrative General: Alert, oriented, no apparent distress HEENT: Atraumatic, normocephalic Eyes: Anicteric, normal conjunctiva, extraocular movements grossly intact Neck: Supple Respiratory: Clear to auscultation bilaterally, normal respiratory effort Cardiovascular: Regular rate and rhythm GI: Soft, nontender, nondistended Extremities: No edema Musculoskeletal: Moving all extremities Neuro: No overt focal neurological deficits Skin: No rashes appreciated Psych: Cooperative Results Lab / Micro Data 07/16/23 10:10 07/16/23 10:10 Labs: Laboratory Results - last 24 hr 07/16/23 10:10: WBC 8.9, RBC 4.45 L, Hgb 14.0, Hct 41.7, MCV 93.7, MCH 31.5, MCHC 33.6, RDW Std Deviation 42.5, RDW Coeff of Wisam 12.3, Plt Count 143 L, MPV 10.0, Immature Gran % (Auto) 0.200, Neut % (Auto) 47.9, Lymph % (Auto) 37.1, [place] % (Auto) 9.7, Eos % (Auto) 4.6, Baso % (Auto) 0.5, Absolute Neuts (auto) 4.2, Absolute Lymphs (auto) 3.28, Nucleated RBC % 0, PT 13.9, INR 1.1, APTT 29.7, D-Dimer Quant (PE/DVT) 3.31 H*, Sodium 137, Potassium 3.6, Chloride 107, Carbon Dioxide 26.0, Anion Gap 4 L, BUN 19 H, Creatinine 1.05, Estim Creat Clear Calc 64.93, Est GFR (MDRD) Af Amer 90, Est GFR (MDRD) Non-Af 75, BUN/Creatinine Ratio 18.1, Glucose 204 H, Calcium 8.4 L, Troponin I High Sens 254 H* 07/16/23 12:36: Troponin I High Sens 223 H* Imaging Radiology Impression Chest X-Ray 07/16/23 10:50 IMPRESSION: No acute abnormality is seen. Electronically Signed: Manuel Champagne MD at 11:12 EST , Chest CTA 07/16/23 11:20 IMPRESSION: No evidence of pulmonary embolism. Mild scarring at the right lung base. Electronically Signed: Manuel Champagne MD at 12:44 EST , Assessment & Plan Assessment/Plan (1) Chest pain: (2) History of coronary artery stent placement: (3) Tobacco use: (4) PAD (peripheral artery disease): PLAN: Plan #Elevated troponin -W/ shortness of breath and rapid heart rate better with rest -Suspect NSTEMI -EKG with some subtle ST depressions in 1, V5, V6 -Initial troponin 254, will trend -Will obtain echo -Continue heparin drip -Consult cardiology -Patient on aspirin, Plavix, statin, beta-lui at home # History of coronary artery disease with 6 stents -As above, continue home medications -Heart healthy diet # History of PAD -Continue home medications #Tobacco use -Advise cessation -Nicotine replacement available if desired #DVT ppx: Heparin drip Thelma Ortiz MD Charges/Coding Visit Charges Inpatient E&M: 32454 Init Hosp L1
--- NOTE | 2023-07-16 13:30 | NURSING ---
PCU [facility] NSTEMI, CHEST PAIN, HX OF CAD
--- NOTE | 2023-07-16 13:53 | ECHOD_ITS ---
Reason For Study: DYSPNEA/SOB Procedure This was a 2D Doppler, Color Flow transthoracic echocardiogram. Exam performed in department. Left Ventricle Severely dilated left ventricle. The estimated ejection fraction is 10-15 %. Right Ventricle Normal right ventricle. Normal systolic function. Atria Normal left atrium. Normal right atrium. Mitral Valve The mitral valve is structurally normal. No prolapse or stenosis seen. Tricuspid Valve Normal tricuspid valve. Aortic Valve Trisinus/trileaflet aortic valve. Pulmonic Valve The pulmonic valve is not well visualized. Great Vessels Normal aortic root. Pericardium/Pleural No pericardial effusion. MMode/2D Measurements & Calculations LVIDd: 5.6 cm IVSd: 0.96 cm Ao root diam: 3.6 cm LVIDs: 5.0 cm LVPWd: 0.93 cm RVDd: 2.8 cm FS: 10.7 % LAV(MOD-bp): 58.2 ml LVAd ap4: 41.4 cm2 LVAd ap2: 36.6 cm2 LAV(MOD-bp) Indexed: 32.3 ml/m2 LVLd ap4: 8.2 cm LVLd ap2: 8.3 cm LAV(MOD-sp2): 63.5 ml EDV(MOD-sp4): 171.7 ml EDV(MOD-sp2): 134.7 ml LAV(MOD-sp4): 43.8 ml EDV(sp4-el): 178.4 ml EDV(sp2-el): 136.6 ml LVAs ap4: 38.3 cm2 LVAs ap2: 31.7 cm2 LVLs ap4: 8.4 cm LVLs ap2: 8.2 cm ESV(MOD-sp4): 142.9 ml ESV(MOD-sp2): 103.4 ml ESV(sp4-el): 147.3 ml ESV(sp2-el): 104.2 ml EF(MOD-sp4): 16.8 % EF(MOD-sp2): 23.2 % EF(sp4-el): 17.4 % SV(MOD-sp4): 28.8 ml SV(MOD-sp2): 31.3 ml SV(sp4-el): 31.1 ml LA dimension(2D): 4.3 cm LA A4 area: 15.4 cm2 RA A4 area: 16.2 cm2 TAPSE: 2.4 cm Time Measurements MV dec time: 0.19 sec Doppler Measurements & Calculations MV E max asim: 67.7 cm/sec Lat Peak E' Asim: 7.1 cm/sec Med Peak E' Asim: 6.6 cm/sec MV A max asim: 90.5 cm/sec E/E' lat: 9.5 E/E' med: 10.2 MV E/A: 0.75 MV V2 max: 101.5 cm/sec MV P1/2t max asim: 73.2 cm/sec Ao V2 max: 84.6 cm/sec MV max P.1 mmHg MV P1/2t: 98.7 msec Ao max P.9 mmHg MV V2 mean: 60.5 cm/sec MV dec slope: 217.3 cm/sec2 Ao V2 mean: 61.6 cm/sec MV mean P.7 mmHg Ao mean P.7 mmHg MV V2 VTI: 20.6 cm MVA(P1/2t): 2.2 cm2 Ao V2 VTI: 17.4 cm AV (velocity ratio): 0.69 LV V1 max: 61.5 cm/sec PA V2 max: 53.9 cm/sec TR max asim: 244.0 cm/sec LV V1 max P.5 mmHg PA V2 mean: 51.1 cm/sec TR max P.8 mmHg LV V1 mean P.73 mmHg LV V1 mean: 39.4 cm/sec LV V1 VTI: 11.9 cm ECHO/Echo Complete Interpretation Summary The estimated ejection fraction is 10-15 %. Reviewed LV systolic. Dysfunction With severe global LV hypokinesia Ordering Physician: Thelma Ortiz Referring Physician: [facility] Performed By: Elissa Bustillo RDCS, RVT
--- OUTSIDE RECORDS SUMMARY | 2023-07-16 14:14 | XMS RPT_ITS | CCD ---
Author Name Unknown Address [address] [place] [address] Organization [facility] Care Team Providers Care Router Tender Name Role Phone CHERYLE BARGER MOR Unavailable Unavailable Allergies Allergy Classification Reported Allergen(s) Allergy Type Date of Onset Reaction(s) Facility (1 source) Penicillin; Translations: [PENICILLIN] Drug Allergy 05-10-2017 [facility] Other [place] Repository Problems Problem Classification Problem Date Documented [...] 05-23-2018 Emergency department patient visit CHERYLE BARGER [facility] Summary Purpose Family History No [...] DATE CREATED AUTHOR AUTHOR'S ORGANIZ ATION 05/26/2018 [facility] DATE CREATED AUTHOR AUTHOR'S ORGANIZ ATION 05/27/2018 [facility] FOR RECORDS PERTAINING TO PATIENTS WHO [...] BE BASED ON THE PRIMARY CLINICAL RECORDS. [facility]. provides no warranty or guarantee of the accuracy or completeness of information in this document.
--- NOTE | 2023-07-16 14:36 | CON.PCM.CA_ITS ---
Documented by User: Filomena MCKEON, LINDA 07/16/23 15:20 Assessment & Plan Assessment/Plan (1) Tobacco use: (2) History of coronary artery disease: (3) History of coronary artery stent placement: HPI Consult Data Date of Consult: 07/16/23 HPI Narrative HPI Narrative: EDWARD URBAN, is a 68 M who presented to [facility] ER today with CP and SOB that has been going on/off for 2 weeks. Chest tightness and shortness of breath usually resolves with rest. Symptoms can last up to 10 minutes. His troponins were noted to be elevated and were were consulted. Pt does have a HX of CAD with multiple PCIs. [facility] He was seen in [facility] in 02/2022 with a STEMI. He was urgently taken to the chemical lab supervisor by Dr. Elizalde. Heart cath demonstrated 100% occlusion of the LAD that was treated with thrombectomy and drug-eluting stent placement, He has a chronically occluded RCA that has collaterals from the circumflex. Patient has severe LV dysfunction as well. During that admission he did have cardiogenic shock and did require levophed for a short time. [facility] Medical History Acute ST elevation myocardial infarction (STEMI) (02/18/22) Atherosclerosis of coronary artery of [place] heart without angina pectoris Cardiogenic shock Coronary artery disease Hypotension PAD (peripheral artery disease) Stroke Tobacco use Home Medications atorvastatin 80 mg tablet 80 mg PO QHS CHOLESTEROL #30 tabs 02/20/22 [Rx Last Taken 07/15/23] metoprolol succinate 25 mg tablet,extended release 24 hr 25 mg PO DAILY BLOOD PRESSURE #30 tabs 02/20/22 [Rx Last Taken 07/16/23] multivit with minerals-iron 18 mg-folic ac 400 mcg-vit K 25 mcg tablet (Adults Multivitamin) 1 tab PO DAILY HEALTH MAINTENANCE 03/20/22 [History Last Taken 07/16/23] nitroglycerin 0.4 mg sublingual tablet 0.4 mg sublingual Q5M PRN CHEST PAIN 03/20/22 [History Last Taken Unknown] aspirin 81 mg tablet,delayed release 81 mg PO DAILY HEART HEALTH 07/16/23 [History Last Taken 07/16/23] clopidogrel 75 mg tablet 75 mg PO DAILY BLOOD THINNER 07/16/23 [History Last Taken 07/16/23] Allergy/AdvReac Type Severity Reaction Status Date / Time Penicillins Allergy Hives Verified 06/14/22 16:05 Family History Other Breast cancer Heart disease Surgical History History of coronary artery stent placement Social History Smoking Status: Heavy Smoker (>10/day) ROS ROS Narrative General: Denies fever/chills HENT: Denies headache, denies stuffy nose, denies sore throat EYES: Denies changes in vision Resp: Chronic cough, increased episodes of shortness of breath that improve with rest Cardiac: see HPI GI: Denies abdominal pain, denies changes in bowel, denies nausea/vomiting : Denies changes in urination Extremity: Denies swelling MSK: Denies weakness Neuro: Denies any numbness/tingling Heme: Denies any bleeding or bruising Physical Exam Const alert and oriented x3 HEENT normocephalic Eyes no scleral icterus Resp normal respiratory effort and clear to auscultation bilaterally Cardio regular rate, regular rhythm, S1 normal heart sound, S2 normal heart sound, no murmurs, no rub, no gallops and peripheral pulses 2+ throughout Psych mental status grossly normal Risk Stratification Risk Stratification Applicable: Yes Age >/= 65: Yes >/= 3 CAD Risk Factors (HTN, HLD, DM, family hx of CAD, or current smoker): Yes Aspirin Use in the Past 7 Days: Yes Severe Angina (>/= episodes in 24 hours): Yes EKG ST Changes >/= 0.5mm: No Positive Cardiac Marker: Yes AGNES Risk Stratification Score: 5 AGNES % Risk: 25% Risk Charges/Coding Visit Charges Office Visits / Consults: 34736 IP Consult L4 Objective Data Vital Signs: Vital Signs Temp Pulse Resp BP Pulse Ox O2 Del Method 98 F 83 17 137/79 H 97 Room Air 07/16/23 09:55 07/16/23 13:43 07/16/23 13:43 07/16/23 13:43 07/16/23 13:43 07/16/23 10:44 Oxygen Delivery Method Room Air Weight: 150 lb 4.8 oz Body Mass Index (BMI) 22.8 Lab / Micro Data 07/16/23 10:10 07/16/23 10:10 Labs: Laboratory Results - last 24 hr 07/16/23 10:10: WBC 8.9, RBC 4.45 L, Hgb 14.0, Hct 41.7, MCV 93.7, MCH 31.5, MCHC 33.6, RDW Std Deviation 42.5, RDW Coeff of Wisam 12.3, Plt Count 143 L, MPV 10.0, Immature Gran % (Auto) 0.200, Neut % (Auto) 47.9, Lymph % (Auto) 37.1, [place] % (Auto) 9.7, Eos % (Auto) 4.6, Baso % (Auto) 0.5, Absolute Neuts (auto) 4.2, Absolute Lymphs (auto) 3.28, Nucleated RBC % 0, PT 13.9, INR 1.1, APTT 29.7, D-Dimer Quant (PE/DVT) 3.31 H*, Sodium 137, Potassium 3.6, Chloride 107, Carbon Dioxide 26.0, Anion Gap 4 L, BUN 19 H, Creatinine 1.05, Estim Creat Clear Calc 64.93, Est GFR (MDRD) Af Amer 90, Est GFR (MDRD) Non-Af 75, BUN/Creatinine Ratio 18.1, Glucose 204 H, Calcium 8.4 L, Troponin I High Sens 254 H* 07/16/23 12:36: Troponin I High Sens 223 H* Cardiology Labs/Tests 07/16/23 10:10: WBC 8.9, RBC 4.45 L, Hgb 14.0, Hct 41.7, MCV 93.7, MCH 31.5, MCHC 33.6, Plt Count 143 L, MPV 10.0, Immature Gran % (Auto) 0.200, Neut % (Auto) 47.9, Lymph % (Auto) 37.1, [place] % (Auto) 9.7, Eos % (Auto) 4.6, Baso % (Auto) 0.5, Absolute Neuts (auto) 4.2, Nucleated RBC % 0, PT 13.9, INR 1.1, APTT 29.7, D-Dimer Quant (PE/DVT) 3.31 H*, Sodium 137, Potassium 3.6, Chloride 107, Carbon Dioxide 26.0, Anion Gap 4 L, BUN 19 H, Creatinine 1.05, Est GFR (MDRD) Af Amer 90, Est GFR (MDRD) Non-Af 75, BUN/Creatinine Ratio 18.1, Glucose 204 H, Calcium 8.4 L Rhythm: EKG: ECHO: Stress Test: Cardiac Cath: PCI: CT Surgery: Holter monitor: EPS: PPM: CXR: Chest CT Scan: Radiography Diagnostic Testing: Radiology Impression Chest X-Ray 07/16/23 10:50 IMPRESSION: No acute abnormality is seen. Electronically Signed: Manuel Champagne MD at 11:12 EST , Chest CTA 07/16/23 11:20 IMPRESSION: No evidence of pulmonary embolism. Mild scarring at the right lung base. Electronically Signed: Manuel Champagne MD at 12:44 EST , Documented by User: Dr. Alaina Mcghee MD 07/16/23 17:48 Assessment & Plan Assessment/Plan (1) Tobacco use: (2) History of coronary artery disease: (3) History of coronary artery stent placement: PLAN: Plan 68-year-old patient With history of CAD In February 2022 patient presented with STEMI underwent emergency cardiac catheterization by Dr. Elizalde With subsequent PCI and stent of the LAD and the left circumflex He had COAL WEIGHER of the RCA which were collateralized from the left coronary system. Cardiac care plan recommendation This presentation and symptoms of shortness of breath and chest pain With a clinical diagnosis of non-STEMI, serum troponin level was 284 Other medical problem include history of tobacco use, PAD, hyperlipidemia Patient follow-up with his food writer at the [place] facility And now presented over here because of symptoms of shortness of breath and chest pain Will continue current treatment with heparin, dual antiplatelet aspirin Plavix, statin, beta-lui carvedilol His renal function is normal will add Entresto as needed I reviewed the cardiac catheterization which showed PCI and stent of two-vessel LAD and the circumflex proximally With a COAL WEIGHER of the RCA. Bedside echocardiogram reviewed which showed severe LV dysfunction ejection fraction in the range of 10-15% No significant valvular regurgitation noted Will proceed with cardiac catheterization/right radial artery approach And will determine further plan based on results of cardiac cath. I discussed cardiac care plan in detail with the patient, nursing staff will proceed with maximize guideline directed medical therapy Will discuss further plan based on result of cardiac catheterization.. HPI Consult Data Date of Consult: 07/16/23 [facility] Medical History Acute ST elevation myocardial infarction (STEMI) (02/18/22) Atherosclerosis of coronary artery of [place] heart without angina pectoris Cardiogenic shock Coronary artery disease Hypotension PAD (peripheral artery disease) Stroke Tobacco use Home Medications atorvastatin 80 mg tablet 80 mg PO QHS CHOLESTEROL #30 tabs 02/20/22 [Rx Last Taken 07/15/23] metoprolol succinate 25 mg tablet,extended release 24 hr 25 mg PO DAILY BLOOD PRESSURE #30 tabs 02/20/22 [Rx Last Taken 07/16/23] multivit with minerals-iron 18 mg-folic ac 400 mcg-vit K 25 mcg tablet (Adults Multivitamin) 1 tab PO DAILY HEALTH MAINTENANCE 03/20/22 [History Last Taken 07/16/23] nitroglycerin 0.4 mg sublingual tablet 0.4 mg sublingual Q5M PRN CHEST PAIN 03/20/22 [History Last Taken Unknown] aspirin 81 mg tablet,delayed release 81 mg PO DAILY HEART HEALTH 07/16/23 [History Last Taken 07/16/23] clopidogrel 75 mg tablet 75 mg PO DAILY BLOOD THINNER 07/16/23 [History Last Ta [place] 07/16/23] Allergy/AdvReac Type Severity Reaction Status Date / Time Penicillins Allergy Hives Verified 06/14/22 16:05 Family History Other Breast cancer Heart disease Surgical History History of coronary artery stent placement Social History Smoking Status: Heavy Smoker (>10/day) Risk Stratification Age >/= 65: Yes AGNES Risk Stratification Score: 5 AGNES % Risk: 25% Risk Lab / Micro Data 07/16/23 10:10 07/16/23 10:10
[2023-07-16 14:57] LABS: Troponin-I HS 284 pg/mL (3.0-78.0)
[2023-07-16] MEDS: Atorvastatin Calcium 80 MG Tablet PO (20:21)
[2023-07-17] VITALS (10 sets, daily range): BP systolic 99–115; BP diastolic 58–77; PULSE 75–91; RESP 16–18; TEMP 36.4–36.9; O2SAT 92–99
[2023-07-17] MEDS: 0.9% Normal Saline (1000mL) 1,000 ML 150 ML IV ×4 (00:12→20:30)
[2023-07-17 04:48] LABS: Absolute Lymphocyte Count 2.04 X10^3/uL (0.83-4.51); Absolute Neutrophil Count 3.7 X10^3/uL (2.0-7.7); Basophil# 0.03 X10^3/uL; Basophil% 0.4 % (0-1); Eosinophil# 0.27 X10^3/uL; Hematocrit 36.7 % (40-54); Hemoglobin 11.9 g/dL (13.0-16.5); Lymphocyte # 2.04 X10^3/ul (0.83-4.51); Lymphocyte % 29.9 % (19-41); Mean Corp Hgb Conc 32.4 g/dL (32-36); Mean Corpuscular Hgb 30.8 pg (27.0-32.0); Mean Corpuscular Volume 95.1 fL (80-94); Mean Platelet Vol. 10.2 fl (6.2-12.0); Monocyte# 0.74 X10^3/uL; Monocyte% 10.9 % (0-10); NRBC Flagged by Analyzer 0 % (0-5); Neutrophil # 3.72 X10^3/uL (2.7-7.7); Neutrophil % 54.5 % (47-70); Platelet Count 130 K/mm3 (150-450); RBC Distribution Width CV 12.5 % (11.6-14.6); RBC Distribution Width SD 43.3 fl (35.1-43.9); Red Blood Count 3.86 M/mm3 (4.6-6.2); White Blood Count 6.8 K/mm3 (4.4-11.0)
[2023-07-17 05:11] LABS: AST(SGOT) 26 U/L (15-37); Alanine Aminotransfer ALT/SGPT 22 U/L (16-61); Albumin, Serum 2.9 g/dL (3.2-5.0); Alkaline Phosphatase 79 U/L (45-117); Anion Gap 1 (5-15); BUN 15 mg/dL (7-18); BUN/Creat Ratio 18.1 RATIO (10-20); Calcium,Total 8.1 mg/dL (8.5-10.1); Chloride 115 mmol/L (98-107); Cholesterol 104 mg/dL (200); Creatinine, Serum 0.83 mg/dL (0.70-1.30); EST Glomerular Filtration Rate 98 mL/min (>60); Est Glom Filt Rate - Afr Amer 119 mL/min (>60); Estimated Creatinine Clearance 73.98 ml/min; Glucose 94 mg/dL (74-106); High Density Lipoprotein 52 mg/dL; Magnesium 1.8 mg/dL (1.6-2.6); Potassium 4.2 mmol/L (3.5-5.1); Protein, Total 5.9 g/dL (6.4-8.2); Sodium Level 140 mmol/L (136-145); Thyroid Stim Hormone (TSH) 1.81 uIU/mL (0.358-3.74); Triglycerides 48 mg/dL; Very Low Density Lipoprotein 10 mg/dL (5-40)
[2023-07-17 05:15] LABS: Partial Thromboplast Time 56.7 Seconds (24.1-36.2)
[2023-07-17 05:33] LABS: International Normalized Ratio 1.1; Prothrombin Time (Protime)PT. 14.4 SECONDS (11.7-14.9)
[2023-07-17] MEDS: Aspirin E.C. 81 MG Tablet PO (05:54)
[2023-07-17] MEDS: Clopidogrel Bisulfate 75 MG Tablet PO (05:54)
[2023-07-17] MEDS: Metoprolol(XL)Succ 25 MG Tablet PO (05:54)
--- NOTE | 2023-07-17 09:02 | PCM.PN.HOSP ---
Subjective Subjective Feels well currently. Objective Data Objective Data Vital Signs: Vital Signs Temp Pulse Resp BP Pulse Ox O2 Del Method 36.9 C 84 16 110/75 95 Room Air 07/17/23 05:55 07/17/23 05:55 07/17/23 05:55 07/17/23 05:55 07/17/23 05:55 07/17/23 07:45 Oxygen Delivery Method Room Air Weight: 61.4 kg Body Mass Index (BMI) 20.5 Intake & Output: Intake and Output for Last 24 Hours 07/15/23 07/16/23 07/17/23 23:59 23:59 23:59 Intake Total 1849.33 / 1849.33 1392.5 / 1392.5 Output Total 350 / 350 Balance 1499.33 / 1499.33 1392.5 / 1392.5 Lab / Micro Data 07/17/23 04:30 07/17/23 04:30 Labs: Laboratory Results - last 24 hr 07/16/23 10:10: WBC 8.9, RBC 4.45 L, Hgb 14.0, Hct 41.7, MCV 93.7, MCH 31.5, MCHC 33.6, RDW Std Deviation 42.5, RDW Coeff of Wisam 12.3, Plt Count 143 L, MPV 10.0, Immature Gran % (Auto) 0.200, Neut % (Auto) 47.9, Lymph % (Auto) 37.1, [place] % (Auto) 9.7, Eos % (Auto) 4.6, Baso % (Auto) 0.5, Absolute Neuts (auto) 4.2, Absolute Lymphs (auto) 3.28, Nucleated RBC % 0, PT 13.9, INR 1.1, APTT 29.7, D-Dimer Quant (PE/DVT) 3.31 H*, Sodium 137, Potassium 3.6, Chloride 107, Carbon Dioxide 26.0, Anion Gap 4 L, BUN 19 H, Creatinine 1.05, Estim Creat Clear Calc 64.93, Est GFR (MDRD) Af Amer 90, Est GFR (MDRD) Non-Af 75, BUN/Creatinine Ratio 18.1, Glucose 204 H, Calcium 8.4 L, Troponin I High Sens 254 H* 07/16/23 12:36: Troponin I High Sens 223 H* 07/16/23 14:22: Troponin I High Sens 284 H* 07/16/23 19:00: APTT 146.0 H* 07/17/23 04:30: WBC 6.8, RBC 3.86 L, Hgb 11.9 L, Hct 36.7 L, MCV 95.1 H, MCH 30.8, MCHC 32.4, RDW Std Deviation 43.3, RDW Coeff of Wisam 12.5, Plt Count 130 L, MPV 10.2, Immature Gran % (Auto) 0.300, Neut % (Auto) 54.5, Lymph % (Auto) 29.9, [place] % (Auto) 10.9 H, Eos % (Auto) 4.0, Baso % (Auto) 0.4, Absolute Neuts (auto) 3.7, Absolute Lymphs (auto) 2.04, Nucleated RBC % 0, PT 14.4, INR 1.1, APTT 56.7 H, Sodium 140, Potassium 4.2, Chloride 115 H, Carbon Dioxide 24.0, Anion Gap 1 L, BUN 15, Creatinine 0.83, Estim Creat Clear Calc 73.98, Est GFR (MDRD) Af Amer 119, Est GFR (MDRD) Non-Af 98, BUN/Creatinine Ratio 18.1, Glucose 94, Calcium 8.1 L, Magnesium 1.8, Total Bilirubin 0.40, AST 26, ALT 22, Alkaline Phosphatase 79, Total Protein 5.9 L, Albumin 2.9 L, Globulin 3.0, Albumin/Globulin Ratio 1.0, Triglycerides 48, Cholesterol 104, LDL Cholesterol 42, VLDL Cholesterol 10, HDL Cholesterol 52, TSH 1.81 Radiography Diagnostic Testing: Radiology Impression Chest X-Ray 07/16/23 10:50 IMPRESSION: No acute abnormality is seen. Electronically Signed: Manuel Champagne MD at 11:12 EST , Chest CTA 07/16/23 11:20 IMPRESSION: No evidence of pulmonary embolism. Mild scarring at the right lung base. Electronically Signed: Manuel Champagne MD at 12:44 EST , Echocardiogram 07/16/23 13:53 Interpretation Summary The estimated ejection fraction is 10-15 %. Reviewed LV systolic. Dysfunction With severe global LV hypokinesia Ordering Physician: Thelma Ortiz Referring Physician: [facility] Performed By: Elissa Bustillo RDCS, RVT Physical Exam Const alert and no apparent distress HEENT head/scalp atraumatic and moist oral mucous membranes Resp normal respiratory effort, no retractions, no use of accessory muscles and clear to auscultation bilaterally Cardio regular rate, regular rhythm, S1 normal heart sound and S2 normal heart sound GI normal to inspection, nondistended, normoactive bowel sounds, soft to palpation, non-tender and non-distended Extremity normal to inspection and full ROM Assessment & Plan Assessment/Plan (1) Chest pain: (2) History of coronary artery stent placement: (3) Tobacco use: (4) PAD (peripheral artery disease): PLAN: Plan NSTEMI type I CTA chest negative for PE on heparin gtt check echo Patient on aspirin, Plavix, statin, beta-lui Cath showed EF 15%. LAD with proximal in-stent stenosis, left circ with in-stent stenosis of 75% Cardiology advising transfer to tertiary facility. Patient has been accepted at [facility]. Waiting on bed availability before patient can be transferred. Ischemic cardiomyopathy EF 15% metoprolol succinate Concerned patient may need an AICD. Will defer to cardiology at the tertiary center. Chronic conditions: History of coronary artery disease with 6 stents-As above, continue home medications-Heart healthy diet History of PAD-Continue home medications topbacco use-Advise cessation-Nicotine replacement available if desired VTE prophylaxis: not indicated while on anticoagulation. Charges/Coding Visit Charges Inpatient E&M: 51622 Subs Hosp L2
--- NOTE | 2023-07-17 09:46 | PN.CARD_ITS ---
Documented by User: Filomena MCKEON, LINDA 07/17/23 09:53 Subjective Subjective Pt seen and examined today. No events overnight. He has not had any CP/SOB. He will be undergoing a heart cath this AM. Troponin trended 284/223/284 Objective Data Vital Signs: Vital Signs Temp Pulse Resp BP Pulse Ox O2 Del Method 98.4 F 84 16 110/75 95 Room Air 07/17/23 05:55 07/17/23 05:55 07/17/23 05:55 07/17/23 05:55 07/17/23 05:55 07/17/23 07:45 Oxygen Delivery Method Room Air Weight: 135 lb 5.821 oz Body Mass Index (BMI) 20.5 Intake & Output: Intake and Output for Last 24 Hours 07/15/23 07/16/23 07/17/23 23:59 23:59 23:59 Intake Total 1849.33 / 1849.33 1392.5 / 1392.5 Output Total 350 / 350 Balance 1499.33 / 1499.33 1392.5 / 1392.5 Lab / Micro Data 07/17/23 04:30 07/17/23 04:30 Labs: Laboratory Results - last 24 hr 07/16/23 10:10: WBC 8.9, RBC 4.45 L, Hgb 14.0, Hct 41.7, MCV 93.7, MCH 31.5, MCHC 33.6, RDW Std Deviation 42.5, RDW Coeff of Wisam 12.3, Plt Count 143 L, MPV 10.0, Immature Gran % (Auto) 0.200, Neut % (Auto) 47.9, Lymph % (Auto) 37.1, [place] % (Auto) 9.7, Eos % (Auto) 4.6, Baso % (Auto) 0.5, Absolute Neuts (auto) 4.2, Absolute Lymphs (auto) 3.28, Nucleated RBC % 0, PT 13.9, INR 1.1, APTT 29.7, D-Dimer Quant (PE/DVT) 3.31 H*, Sodium 137, Potassium 3.6, Chloride 107, Carbon Dioxide 26.0, Anion Gap 4 L, BUN 19 H, Creatinine 1.05, Estim Creat Clear Calc 64.93, Est GFR (MDRD) Af Amer 90, Est GFR (MDRD) Non-Af 75, BUN/Creatinine Ratio 18.1, Glucose 204 H, Calcium 8.4 L, Troponin I High Sens 254 H* 07/16/23 12:36: Troponin I High Sens 223 H* 07/16/23 14:22: Troponin I High Sens 284 H* 07/16/23 19:00: APTT 146.0 H* 07/17/23 04:30: WBC 6.8, RBC 3.86 L, Hgb 11.9 L, Hct 36.7 L, MCV 95.1 H, MCH 30.8, MCHC 32.4, RDW Std Deviation 43.3, RDW Coeff of Wisam 12.5, Plt Count 130 L, MPV 10.2, Immature Gran % (Auto) 0.300, Neut % (Auto) 54.5, Lymph % (Auto) 29.9, [place] % (Auto) 10.9 H, Eos % (Auto) 4.0, Baso % (Auto) 0.4, Absolute Neuts (auto) 3.7, Absolute Lymphs (auto) 2.04, Nucleated RBC % 0, PT 14.4, INR 1.1, APTT 56.7 H, Sodium 140, Potassium 4.2, Chloride 115 H, Carbon Dioxide 24.0, Anion Gap 1 L , BUN 15, Creatinine 0.83, Estim Creat Clear Calc 73.98, Est GFR (MDRD) Af Amer 119, Est GFR (MDRD) Non-Af 98, BUN/Creatinine Ratio 18.1, Glucose 94, Calcium 8.1 L, Magnesium 1.8, Total Bilirubin 0.40, AST 26, ALT 22, Alkaline Phosphatase 79, Total Protein 5.9 L, Albumin 2.9 L, Globulin 3.0, Albumin/Globulin Ratio 1.0, Triglycerides 48, Cholesterol 104, LDL Cholesterol 42, VLDL Cholesterol 10, HDL Cholesterol 52, TSH 1.81 Cardiology Labs/Tests 07/16/23 10:10: WBC 8.9, RBC 4.45 L, Hgb 14.0, Hct 41.7, MCV 93.7, MCH 31.5, MCHC 33.6, Plt Count 143 L, MPV 10.0, Immature Gran % (Auto) 0.200, Neut % (Auto) 47.9, Lymph % (Auto) 37.1, [place] % (Auto) 9.7, Eos % (Auto) 4.6, Baso % (Auto) 0.5, Absolute Neuts (auto) 4.2, Nucleated RBC % 0, PT 13.9, INR 1.1, APTT 29.7, D-Dimer Quant (PE/DVT) 3.31 H*, Sodium 137, Potassium 3.6, Chloride 107, Carbon Dioxide 26.0, Anion Gap 4 L, BUN 19 H, Creatinine 1.05, Est GFR (MDRD) Af Amer 90, Est GFR (MDRD) Non-Af 75, BUN/Creatinine Ratio 18.1, Glucose 204 H, Calcium 8.4 L 07/16/23 19:00: APTT 146.0 H* 07/17/23 04:30: WBC 6.8, RBC 3.86 L, Hgb 11.9 L, Hct 36.7 L, MCV 95.1 H, MCH 30.8, MCHC 32.4, Plt Count 130 L, MPV 10.2, Immature Gran % (Auto) 0.300, Neut % (Auto) 54.5, Lymph % (Auto) 29.9, [place] % (Auto) 10.9 H, Eos % (Auto) 4.0, Baso % (Auto) 0.4, Absolute Neuts (auto) 3.7, Nucleated RBC % 0, PT 14.4, INR 1.1, APTT 56.7 H, Sodium 140, Potassium 4.2, Chloride 115 H, Carbon Dioxide 24.0, Anion Gap 1 L, BUN 15, Creatinine 0.83, Est GFR (MDRD) Af Amer 119, Est GFR (MDRD) Non-Af 98, BUN/Creatinine Ratio 18.1, Glucose 94, Calcium 8.1 L, Magnesium 1.8, Total Bilirubin 0.40, Triglycerides 48, Cholesterol 104, LDL Cholesterol 42, VLDL Cholesterol 10, HDL Cholesterol 52 Rhythm: SR Radiography Diagnostic Testing: Radiology Impression Chest X-Ray 07/16/23 10:50 IMPRESSION: No acute abnormality is seen. Electronically Signed: Manuel Champagne MD at 11:12 EST , Chest CTA 07/16/23 11:20 IMPRESSION: No evidence of pulmonary embolism. Mild scarring at the right lung base. Electronically Signed: Manuel Champagne MD at 12:44 EST , Echocardiogram 07/16/23 13:53 Interpretation Summary The estimated ejection fraction is 10-15 %. Reviewed LV systolic. Dysfunction With severe global LV hypokinesia Ordering Physician: Thelma Ortiz Referring Physician: [facility] Performed By: Elissa Bustillo, KEANU, RVT Physical Exam Const alert and oriented x3 HEENT normocephalic Eyes no scleral icterus Resp normal respiratory effort and clear to auscultation bilaterally Cardio regular rate, regular rhythm, S1 normal heart sound, S2 normal heart sound, no murmurs, no rub, no gallops and peripheral pulses 2+ throughout Psych mental status grossly normal Assessment & Plan Assessment/Plan (1) Tobacco use: (2) History of coronary artery stent placement: (3) Chest pain: (4) Cardiomyopathy, ischemic: PLAN: Plan * Pt does have worsening LV function. After his heart cath this morning will further decide medical management. Recommend that these be optimized with entresto and spirolactone if tolerated. BP is noted to be on lower side. Would also recommend adding an SGL2 * Pt may also need to be considered for an ICD Charges/Coding Visit Charges Inpatient E&M: 03998 Subs Hosp L3 Documented by User: Dr. Alaina Mcghee MD 07/17/23 15:48 Lab / Micro Data 07/17/23 04:30 07/17/23 04:30 Assessment & Plan Assessment/Plan (1) Tobacco use: (2) History of coronary artery stent placement: (3) Chest pain: (4) Cardiomyopathy, ischemic: PLAN: Plan * Cardiac care plan recommendations; Pt does have worsening LV function. After his heart cath this morning will further decide medical management. Recommend that these be optimized with entresto and spirolactone if tolerated. BP is noted to be on lower side. Would also recommend adding an SGL2 * Pt may also need to be considered for an ICD This patient underwent cardiac catheterization today Which revealed severe LV systolic dysfunction ejection fraction in the range of 10-15% With severe ischemic cardiomyopathy At diffuse in-stent stenosis of the proximal LAD with at least around 90% As well has a focal eccentric stenosis of the large left circumflex artery of around 70% RCA is STENCIL MAKER which is well collateralized from the left coronary system. Based on his presentation and severe LV systolic dysfunction is high risk for PCI would require consent for high risk PCI with possible hemodynamic support. As well patient will require further evaluation for ICD/BiV pacer and maximal medical therapy with Entresto, Coreg, Aldactone, Farxiga Based on his clinical progression.
[2023-07-17 11:03] LABS: Partial Thromboplast Time 33.6 Seconds (24.1-36.2)
--- NOTE | 2023-07-17 11:06 | CASEMGMT ---
Insurance review for hospitals In-network with [facility] insurance if transfer is recommended is as follows:?[facility], [place], [facility], [facility], [facility], [facility]), [facility], [facility], and . Adelina Irvin, Discharge Planning Asst.
--- NOTE | 2023-07-17 11:20 | CASEMGMT ---
RN CM Face to Face with patient for initial transition planning/care coordination assessment. RN CM introduced self and role at [facility]. Patient lying in bed, alert and oriented. Patient willing to participate in assessment and is able to answer all questions appropriately. Care providers, pharmacy, and demographics verified. Patient wishes to discharge home, denies need for home health at this time. Patient states he has no further needs or concerns at this time. CM to follow for discharge planning needs that may arise. PCP: Chaya Yu Specialists: [place] [employer] Preferred Pharmacy: [place], [facility] at discharge. [place] Living Will/HPOA: none, interested in completing, SW updated. LNOK: girlfriend Living Arrangements: Patient lives with girlfriend of 30 years in a bilevel home with 5-7 steps with railing to enter the home. Patient is independent at home. Transportation: self, GF DME/HHC: Patient denies DME in the home. No previous HHC or SNF. Disposition Plan: Patient to discharge home with family support and follow-up plans in place. Catie DUNCAN, RN, CM
--- NOTE | 2023-07-17 12:32 | PRO.PCM_ITS ---
Procedure Report Date of Procedure: 07/17/23 Left heart catheterization; 1. Moderate sedation 2. Selective left coronary angiography 3. Left ventriculogram 4. Measurement of LVEDP and a pullback pressure 5. Placement of TR band to close the right radial artery arteriotomy site. Consent; Risk and benefit of procedure explained in detail patient elected to proceed informed consent obtained. Moderate sedation; Patient sedated with intravenous Versed intravenous fentanyl. Preprocedure diagnosis; 68-year-old patient, with known CAD Patient had STEMI in February 19, 2022 Underwent cardiac catheterization and PCI and stent of proximal/mid LAD as well as the mid left circumflex artery using drug-eluting stent has MANAGER GOLF?RCA. Patient presented with symptoms of shortness of breath, chest pain with a clinical diagnosis of non-ST elevation OH Has significantly abnormal LV systolic function ejection fraction range of around 10-15% with global LV hypokinesia. Based on his clinical presentation he was taken to the Coiled Tubing Operator today diagnostic catheter used; Diagnostic catheter used; 1. 5 Latvian 3.5 JL diagnostic cath 2. 5 Latvian pigtail catheter. Procedure in detail; Patient brought to the Coiled Tubing Operator in fasting state Right radial artery area prepped and draped in the usual sterile fashion. Access obtained from the right radial artery with the placement of 6 Latvian Terumo sheath Will proceed with 5 Latvian JL 3.5 advanced sending aorta Cannulated the left main Multiple views of the left coronary system were obtained. Following this the catheter exchanged for 5 Latvian pigtail catheter elevated echogram obtained using 25 cc of contrast. Following this all angiographic views were studied. RCA was not cannulated during this time as it is a MANAGER GOLF from last time on well collateralized from the left coronary system. Following this all catheter removed and hemostasis maintained with placement of TR band to the right radial artery arteriotomy site. Hemodynamics; 1. Severe global LV hypokinesia Ejection fraction in the range of around 10-15% 2. LVEDP measuring around 15 mmHg. Coronary angiography; 1. Left main is normal angiographically, bifurcating into LAD, ramus and the left circumflex 2. Left anterior descending artery proximal in-stent restenosis of around 95% diffuse Mid LAD and distal LAD normal angiographically the large vessel reaching all the way to the apex There is diagonal moderate in size. 3. Ramus intermedius is small patent 4. Left circumflex artery mid in-stent restenosis of 75% 5. Collateralization from the left coronary system to the distal RCA./RCA MANAGER GOLF from his last angiogram. February 19, 2022 coronary angiography when patient presented with a STEMI. Conclusion recommendation This patient with severe ischemic cardiomyopathy With significantly reduced LV systolic function from prior previously his EF in the range of around 35 now with the EF is around 10-15% And a significant in-stent restenosis of the proximal LAD as well as the ramus and MANAGER GOLF of the RCA. Patient will need aggressive guideline directed medical therapy he will be high risk patient for high risk PCI of the proximal LAD and the stent as well as the circumflex artery. And to discuss option of BiV/ICD. I discussed in detail with the patient consideration of high risk PCI with possible hemodynamic support and to transfer for ICD BiV pacer evaluation at the same time which can be set up at tertiary cardiac center/[facility]. No complication in the Coiled Tubing Operator Alaina Mcghee MD,FACC,[facility]
--- NOTE | 2023-07-17 14:37 | CASEMGMT ---
Per RN CM patient was interested in completing a Healthcare Power of Rn Navigator. SW met with patient. Introduced self and role at [facility]. Patient asked if he really needed to. SW said if patient wants his girlfriend as his healthcare POA he should do the documents. SW asked patient if he has children. Patient said he does have children. SW explained to patient that if he did not do the documents the medical decision making would go to his children. Patient said he thinks he will pass on completing the documents. Patient said he thinks he would prefer his children making decisions anyway. Patient said he will talk with his kids. Patient was not willing to give SW his children's names as he wants to talk with them first. Yokasta AMARO
--- NOTE | 2023-07-17 15:02 | CHAPLAIN ---
Type of Pastoral Visit _x__ Initial Visit ___ Follow-up Visit ___ On-call Visit ___ General Patient Visit ___ Spiritual Assessment ___ Family Conference ___ Bereavement ___ Rapid Response ___ Code Blue ___ Other (describe below) Pastoral Care Referral From _x__ Patient ___ Family ___ Nurse ___ Physician ___ Steel Checker ___ Boot And Shoe Repairman ___ Other (describe below) Sacrament/Intervention _x__ Active listening ___ Anointing ___ Rastafarian ___ Bereavement ___ Communion ___ Sophy exploration ___ _x__ Life review ___ Prayer ___ Reconciliation ___ Sacrament of Sick _x__ Supportive presence ___ Wedding ___ Other (describe below) Pastoral Comments patient is welcoming and talkative; pt explains his many health issues over the years and being discouraged that he can't be more active even though I look like I could be active ; pt is be transferred out for pacemaker and defibrillator placement but hesitates on that decision because he would rather not have to do it ; pt gives some life review and his perspectives; comes into the room and the meeting ended
--- NOTE | 2023-07-17 15:27 | CASEMGMT ---
Patient does not have a Healthcare Power of Skate Boarder or Healthcare Living Will. SW spoke with patient and he is not interested in documents. Yokasta Sigala MSW SONDRA
--- NOTE | 2023-07-17 15:29 | PCM.DC.SUM ---
Providers Date of Admission: 07/16/23 Primary Care Physician: [facility] Consultations 07/16/23 13:53 Consult: Cardiology Routine Consulting Provider: Alaina Mcghee Reason for Consult: SOB and rapid HR better w/ rest, elevated trop, on hep gtt EMERGENT Consult: No MD Notified: Yes Date Notified: 07/16/23 Time Notified: 13:34 Method of Notification: Verbal Reason For Visit: SOB, ELEVATED TROP Diagnosis Discharge Diagnosis (1) Chest pain: Status: Acute Code(s): R07.9 - Chest pain, unspecified (2) History of coronary artery stent placement: Status: Acute Code(s): Z95.5 - Presence of coronary angioplasty implant and graft (3) Tobacco use: Status: Acute Code(s): Z72.0 - Tobacco use (4) PAD (peripheral artery disease): Status: Acute Code(s): I73.9 - Peripheral vascular disease, unspecified Plan NSTEMI type I CTA chest negative for PE on heparin gtt check echo Patient on aspirin, Plavix, statin, beta-joshua Cath showed EF 15%. LAD with proximal in-stent stenosis, left circ with in-stent stenosis of 75% Cardiology advising transfer to tertiary facility. Patient has been [facility] at [facility]. Waiting on bed availability before patient can be transferred. Ischemic cardiomyopathy EF 15% metoprolol succinate Concerned patient may need an AICD. Will defer to cardiology at the tertiary center. Chronic conditions: History of coronary artery disease with 6 stents-As above, continue home medications-Heart healthy diet History of PAD-Continue home medications topbacco use-Advise cessation-Nicotine replacement available if desired VTE prophylaxis: not indicated while on anticoagulation. Medications at Discharge Home Medications atorvastatin 80 mg tablet 80 mg PO QHS CHOLESTEROL #30 tabs 02/20/22 metoprolol succinate 25 mg tablet,extended release 24 hr 25 mg PO DAILY BLOOD PRESSURE #30 tabs 02/20/22 multivit with minerals-iron 18 mg-folic ac 400 mcg-vit K 25 mcg tablet (Adults Multivitamin) 1 tab PO DAILY HEALTH MAINTENANCE 03/20/22 nitroglycerin 0.4 mg sublingual tablet 0.4 mg sublingual Q5M PRN CHEST PAIN 03/20/22 aspirin 81 mg tablet,delayed release 81 mg PO DAILY HEART HEALTH 07/16/23 clopidogrel 75 mg tablet 75 mg PO DAILY BLOOD THINNER 07/16/23 Hospital Course Procedures 2-D Echocardiogram and Cardiac catheterization Weight / BMI Weight Weight: 61.4 kg Body Mass Index (BMI) 20.5 ABG / Lab / Microbiology Data 07/17/23 04:30 07/17/23 04:30 Laboratory: Laboratory Results - last 24 hr 07/16/23 19:00: APTT 146.0 H* 07/17/23 04:30: WBC 6.8, RBC 3.86 L, Hgb 11.9 L, Hct 36.7 L, MCV 95.1 H, MCH 30.8, MCHC 32.4, RDW Std Deviation 43.3, RDW Coeff of Wisam 12.5, Plt Count 130 L, MPV 10.2, Immature Gran % (Auto) 0.300, Neut % (Auto) 54.5, Lymph % (Auto) 29.9, [place] % (Auto) 10.9 H, Eos % (Auto) 4.0, Baso % (Auto) 0.4, Absolute Neuts (auto) 3.7, Absolute Lymphs (auto) 2.04, Nucleated RBC % 0, PT 14.4, INR 1.1, APTT 56.7 H, Sodium 140, Potassium 4.2, Chloride 115 H, Carbon Dioxide 24.0, Anion Gap 1 L, BUN 15, Creatinine 0.83, Estim Creat Clear Calc 73.98, Est GFR (MDRD) Af Amer 119, Est GFR (MDRD) Non-Af 98, BUN/Creatinine Ratio 18.1, Glucose 94, Calcium 8.1 L, Magnesium 1.8, Total Bilirubin 0.40, AST 26, ALT 22, Alkaline Phosphatase 79, Total Protein 5.9 L, Albumin 2.9 L, Globulin 3.0, Albumin/Globulin Ratio 1.0, Triglycerides 48, Cholesterol 104, LDL Cholesterol 42, VLDL Cholesterol 10, HDL Cholesterol 52, TSH 1.81 07/17/23 10:30: APTT 33.6 Radiography Diagnostic Testing: Radiology Impression Echocardiogram 07/16/23 13:53 Interpretation Summary The estimated ejection fraction is 10-15 %. Reviewed LV systolic. Dysfunction With severe global LV hypokinesia Ordering Physician: Thelma Ortiz Referring Physician: [facility] Performed By: Elissa Bustillo RDCS, RVT Meaningful Use Info Meaningful Use Diagnoses (Choose all that apply): AMI AMI/Post PCI/Angioplasty Aspirin given w/in 24hrs of arrival?: Yes ASA at discharge?: Yes Antiplatelet Therapy at Discharge:: Yes Statins at discharge?: Yes Sean/ARB at discharge?: No Reason Sean/ARB not ordered:: Hypotension Beta Joshua at discharge?: Yes Done w/ Acute KS measure.: Yes Documented LVEF (%): 15 Discharge Plan Admission Admit Date/Time: 07/16/23 13:29 Attending Provider: Ras Hogue Primary Care Provider: [facility],[place] Consulting Providers: Alaina Mcghee; Thelma Ortzi Discharge Orders/Prescriptions Prescriptions: No Action atorvastatin 80 mg Tablet 80 mg PO QHS Qty: 30 0RF metoprolol succinate 25 mg Tablet Extended Release 24 Hr 25 mg PO DAILY Qty: 30 0RF nitroglycerin 0.4 mg Tablet, Sublingual 0.4 mg SUBLINGUAL Q5M PRN (Reason: CHEST PAIN ) Rx Instructions: do not exceed 3 doses per episode Adults Multivitamin 18 mg iron-400 mcg-25 mcg Tablet 1 tab PO DAILY clopidogrel 75 mg tablet 75 mg PO DAILY aspirin 81 mg Tablet,Delayed Release (Dr/Ec) 81 mg PO DAILY Referrals / Follow Up: [place] [Primary Care Provider] - Disposition Disposition (needs filled in before D/C Order can be placed): Acute Care Hospital Charges/Coding Visit Charges Inpatient E&M: 08822 Disch Hosp
--- NOTE | 2023-07-17 17:26 | NURSING ---
[facility]
[2023-07-17] MEDS: Atorvastatin Calcium 80 MG Tablet PO (20:27)
[2023-07-17] MEDS: HEPARIN/D5w 25,000 UNITS 25,000 UNITS/250 ML IV.SOLN. 7 UNITS CONT INF (23:07)
== END 2023-07-17 23:00 | disposition short-term general hospital (02) | DRG 281 ==
LOC: ED 13:04 → PCU 13:44
PROVIDERS: Internal Medicine Interventional Cardiology; Admitting Provider Internal Medicine; Emergency Provider Emergency Medicine
DX: I21.4 Non-ST elevation (NSTEMI) myocardial infarction (principal); T82.855A Stenosis of coronary artery stent, initial encounter; I73.9 Peripheral vascular disease, unspecified; E78.5 Hyperlipidemia, unspecified; F17.200 Nicotine dependence, unspecified, uncomplicated; I25.10 Atherosclerotic heart disease of native coronary artery without angina pectoris; I25.5 Ischemic cardiomyopathy; I25.2 Old myocardial infarction; Z79.02 Long term (current) use of antithrombotics/antiplatelets; Z79.82 Long term (current) use of aspirin; Z95.5 Presence of coronary angioplasty implant and graft; Z79.01 Long term (current) use of anticoagulants; Z82.49 Family history of ischemic heart disease and other diseases of the circulatory system; Z86.73 Personal history of transient ischemic attack (TIA), and cerebral infarction without residual deficits
CPT/HCPCS: 36415; 71045; 71275; 80048; 80053; 80061; 83735; 84443; 84484; 85025; 85379; 85610; 85730; 93005; 93306; 93458; 99152; 99153; 99285; 99406; J7030; J7040; Q9967; A4216; C1769; C1894